=== PATIENT | female | born 1930 | race Caucasian/White ===

== ENCOUNTER 2017-04-09 23:50 | Inpatient (IN) | payer MEDICARE ==
[~2017-04-09] VITALS: Ht 152.4 cm; Wt 39.6 kg
[2017-04-10] VITALS (9 sets, daily range): BP systolic 123–157; BP diastolic 57–81; PULSE 80–112; RESP 14–24; TEMP 97.7–99.9; O2SAT 92–99
[2017-04-10] MEDS ORDERED: ATIV2INJ2 SQ (01:10)
[2017-04-10] MEDS ORDERED: FURO1TAB62 PO (01:10)
[2017-04-10] MEDS ORDERED: NORC5TAB PO (01:10)
[2017-04-10] MEDS ORDERED: ATIV2INJ2 IM (01:10)
[2017-04-10] MEDS ORDERED: POTA10TA15 PO (01:10)
[2017-04-10] MEDS ORDERED: ALPR0.5T3 PO ×2 (01:10)
[2017-04-10] MEDS ORDERED: SENN8.6T81 PO (01:10)
[2017-04-10] MEDS ORDERED: IPRASOL INH (01:10)
[2017-04-10] MEDS ORDERED: MORPHINE 20MG/ML PO (01:10)
[2017-04-10] MEDS ORDERED: MORP1INJ SQ (01:10)
[2017-04-10] MEDS ORDERED: PRED10 PO (01:12)
[2017-04-10] MEDS ORDERED: LEVO50TA4 PO (01:12)
[2017-04-10] MEDS ORDERED: PARO40TA2 PO (01:12)
[2017-04-10] MEDS ORDERED: GABA100C4 PO (01:12)
[2017-04-10] MEDS ORDERED: ASPI325T PO (01:12)
[2017-04-10 03:06] LABS: AUTOMATED NEUTROPHIL # 13.2 TH/MM3 (1.8-7.7); BASOPHIL # 0.1 TH/MM3 (0-0.2); BASOPHIL % 0.8 % (0.0-2.0); EOSINOPHIL % 0.2 % (0.0-4.0); HEMATOCRIT 34.1 % (35.0-46.0); HEMO FLAGS DIFF FINAL; LYMPH % 4.7 % (9.0-44.0); LYMPHOCYTE # 0.7 TH/MM3 (1.0-4.8); MEAN CELL VOLUME 88.5 FL (80.0-100.0); MEAN CORPUSCULAR HEMOGLOBIN 27.4 PG (27.0-34.0); NEUT % 88.3 % (16.0-70.0); PLATELET COUNT 294 TH/MM3 (150-450); RED BLOOD COUNT 3.85 MIL/MM3 (4.00-5.30); RED CELL DISTRIBUTION WIDTH 23.5 % (11.6-17.2); WHITE BLOOD COUNT 14.9 TH/MM3 (4.0-11.0)
[2017-04-10 03:10] LABS: BLOOD, URINE NEG (NEG); GLUCOSE,URINE NEG (NEG); HYALINE CAST, URINE 3 /lpf (RARE); KETONE, URINE 40 mg/dL (NEG); MUCUS URINE FEW /lpf (OCC); NITRITE,URINE NEG (NEG); URINE COLOR YELLOW (YELLW/STRAW)
[2017-04-10 03:14] LABS: COMMENT (UR) CATH-CULT NOT IND; CULTURE IF INDICATED CATH CULTURE NOT IND
[2017-04-10 03:16] LABS: BICARBONATE 35.8 MEQ/L (21.0-32.0); POTASSIUM 4.4 MEQ/L (3.5-5.1)
--- NOTE | 2017-04-10 03:59 | PD ---
HPI Chief Complaint: Medical Clearance Time Seen by Provider: 02:37 Travel History International Travel<30 days: No Contact w/Intl Traveler<30days: No Traveled to known affect area: No History of Present Illness HPI 86-year-old female presents to the emergency department in the care of her daughter for evaluation of generalized weakness and increased somnolence while receiving morphine and Ativan. Patient reportedly was evaluated to her hospice provider for hip pain. Patient is on hospice for end-stage COPD and CHF. Patient also has chronic anemia. Patient had a fall and the hospice provider stated they could do an x-ray and take her to inpatient hospice care and provide her with pain management. The daughter was agreeable to x-ray and medications for pain. Daughter states since Monday while she's been checking on her mother she become more and more drowsy and somnolent. Daughter states she never sleeps as much and she is afraid that she is being overmedicated. Daughter states that when she discussed this with the hospice provider she stated she was on a pain control regimen for her chronic end-stage condition. The daughter states that she does not feel that she is completely and states that she is typically ambulatory and has been very talkative and has not been ill. No report of recent fever or cough or congestion. No report of vomiting. No reported aspiration chest pain shortness of breath abdominal pain. No report of diarrhea. Since being placed in the hospice inpatient facility they have placed a urinary catheter which also has upset the daughter. The daughter is upset because the mother is not eating and they are not providing her with any IV fluids. Patient continues to smoke cigarettes at home on home hospice. [facility] Past Medical History Narrative Medical COPD CHF anemia tobaccoism nursing notes reviewed Medical History: Unable to Obtain COPD: Yes (END-STAGE COPD) ?: Not Past Surgical History Surgical History: Unable to Obtain Social History Alcohol Use: No Tobacco Use: Yes Allergies-Medications (Allergen,Severity, Reaction): Coded Allergies: Penicillins (Verified Allergy, Unknown, 04/10/17) Reported Meds & Prescriptions Reported Meds & Active Scripts Active Reported Prednisone 10 Mg Tab 10 Mg PO DAILY Paroxetine (Paroxetine HCl) 40 Mg Tab 40 Mg PO DAILY Levothyroxine (Levothyroxine Sodium) 50 Mcg Tab 50 Mcg PO DAILY Gabapentin 100 Mg Cap 200 Mg PO BID Aspirin 325 Mg Tab 325 Mg PO DAILY Morphine Inj (Morphine Sulfate) 10 Mg/Ml Inj 5 Mg SQ PRN Morphine Inj (Morphine Sulfate) 10 Mg/Ml Inj 2.5 Mg SQ PRN Ativan Inj (Lorazepam) 2 Mg/Ml Inj 1 Mg SQ TID PRN Ativan Inj (Lorazepam) 2 Mg/Ml Inj 0.5 Mg IM TID PRN Potassium Chloride Microencaps 10 Meq Tab 10 Meq PO DAILY Sennosides 8.6 Mg Tab 17.2 Mg PO HS [Morphine 20MG/Ml] 5 Mg PO [Morphine 20MG/Ml] 10 Mg PO Duoneb (Ipratropium-Albuterol Neb) 0.5-2.5 Mg/3 Ml Neb 1 Nebule INH Q4HR NEB [place] (Hydrocodone-Acetaminophen) 5-325 mg Tab 1 Tab PO Q4H PRN Lasix (Furosemide) 20 Mg Tab 20 Mg PO DAILY Alprazolam 0.5 Mg Tab 0.5 Mg PO Q4H PRN Alprazolam 0.5 Mg Tab 1 Mg PO Q4H PRN Review of Systems Except as stated in HPI: all other systems reviewed are Neg General / Constitutional: No: Fever HENT: No: Congestion Cardiovascular: No: Chest Pain or Discomfort Respiratory: No: Shortness of Breath Gastrointestinal: No: Abdominal Pain Genitourinary: No: Flank Pain Musculoskeletal: Positive: Pain (hip pain secondary to fall with bruising) Skin: No Rash Neurologic: Positive: Weakness Psychiatric: No: Anxiety Hematologic/Lymphatic: Positive: Easy Bruising Physical Exam Narrative GENERAL: Thin elderly female drowsy but awakens to name otherwise sleeps: No acute distress no respiratory distress SKIN: Warm and dry. HEAD: Normocephalic. EYES: No scleral icterus. Pupils equal round reactive to light. No injection or drainage. NECK: Supple, trachea midline. No JVD or lymphadenopathy. CARDIOVASCULAR: Regular rate and rhythm without murmurs, gallops, or rubs. RESPIRATORY: Breath sounds equal bilaterally. No accessory muscle use. GASTROINTESTINAL: Abdomen soft, non-tender, nondistended. MUSCULOSKELETAL: No cyanosis, or edema. Left hip with subacute bruising from the hip to the lateral distal upper leg intact flexion and extension pelvis is stable. Radial and dorsalis pedis pulses 2+ to palpation. BACK: Nontender without obvious deformity. No CVA tenderness. Data Data Last Documented VS Vital Signs Date Time Temp Pulse Resp B/P (MAP) Pulse Ox O2 Delivery O2 Flow Rate FiO2 04/10/17 05:16 95 17 151/57 (88) 96 Room Air 04/10/17 04:42 99.9 Orders Orders Complete Blood Count With Diff (04/10/17 02:37) Basic Metabolic Panel (Bmp) (04/10/17 02:37) Urinalysis - C+S If Indicated (04/10/17 02:37) Cath For Specimen (04/10/17 02:37) Chest, Single Ap (04/10/17 ) Sodium Chlor 0.9% 250 Ml Inj (Ns 250 Ml (04/10/17 04:15) Blood Culture (04/10/17 05:22) Cefepime Inj (Maxipime Inj) (04/10/17 05:30) Azithromycin Inj (Zithromax Inj) (04/10/17 05:30) Labs Laboratory Tests Test 04/10/17 02:20 White Blood Count 14.9 TH/MM3 Red Blood Count 3.85 MIL/MM3 Hemoglobin 10.6 GM/DL Hematocrit 34.1 % Mean Corpuscular Volume 88.5 FL Mean Corpuscular Hemoglobin 27.4 PG Mean Corpuscular Hemoglobin Concent 31.0 % Red Cell Distribution Width 23.5 % Platelet Count 294 TH/MM3 Mean Platelet Volume 7.3 FL Neutrophils (%) (Auto) 88.3 % Lymphocytes (%) (Auto) 4.7 % Monocytes (%) (Auto) 6.0 % Eosinophils (%) (Auto) 0.2 % Basophils (%) (Auto) 0.8 % Neutrophils # (Auto) 13.2 TH/MM3 Lymphocytes # (Auto) 0.7 TH/MM3 Monocytes # (Auto) 0.9 TH/MM3 Eosinophils # (Auto) 0.0 TH/MM3 Basophils # (Auto) 0.1 TH/MM3 CBC Comment DIFF FINAL Differential Comment Urine Color YELLOW Urine Turbidity CLEAR Urine pH 5.0 Urine Specific [place] 1.014 Urine Protein NEG mg/dL Urine Glucose (UA) NEG mg/dL Urine Ketones 40 mg/dL Urine Occult Blood NEG Urine Nitrite NEG Urine Bilirubin NEG Urine Urobilinogen LESS THAN 2.0 MG/DL Urine Leukocyte Esterase TRACE Urine RBC 5 /hpf Urine WBC 4 /hpf Urine Hyaline Casts 3 /lpf Urine Mucus FEW /lpf Microscopic Urinalysis Comment CATH-CULT NOT IND Blood Urea Nitrogen 36 MG/DL Creatinine 0.34 MG/DL Random Glucose 56 MG/DL Calcium Level 8.8 MG/DL Sodium Level 143 MEQ/L Potassium Level 4.4 MEQ/L Chloride Level 101 MEQ/L Carbon Dioxide Level 35.8 MEQ/L Anion Gap 6 MEQ/L Estimat Glomerular Filtration Rate 177 ML/MIN MDM Medical Decision Making Medical Screen Exam Complete: Yes Emergency Medical Condition: Yes Medical Record Reviewed: Yes Interpretation(s) CBC & BMP Diagram 04/10/17 02:20 Calcium Level 8.8 Vital Signs Date Time Temp Pulse Resp B/P (MAP) Pulse Ox O2 Delivery O2 Flow Rate FiO2 04/10/17 05:16 95 17 151/57 (88) 96 Room Air 04/10/17 04:42 99.9 88 17 157/68 (97) 97 Room Air 04/10/17 01:14 83 17 04/10/17 00:46 83 17 135/69 (91) 98 Room Air 04/10/17 00:19 86 24 135/61 (85) 96 cxr: RLL infiltrate Differential Diagnosis Polypharmacy, dehydration, renal failure, UTI, end-stage COPD Narrative Course CBC is automated differential total white cell count mildly elevated 14,900; BUN is elevated 36 with creatinine of 0.34; urinalysis normal Patient awakens to her name; last administration of Ativan and morphine approximately 12 hours ago who presents It's 4 AM hospice nurse at bedside last administration of Ativan or morphine 4: 45 PM on 04/09/70 Lab values resulted nurse asked to obtain a temperature on the patient which was 99.9F patient identified a white count 14,900 urinalysis is normal no rash or other obvious source of infection abdomen soft nontender chest x-ray obtained and shows a right lower lobe infiltrate concerning for pneumonia per reading radiologist; as such blood cultures obtained and patient administered azithromycin and cefepime. Daughter has been notified that hospice has been here in hospice has spoke with the daughter with a discharge plan. Room air O2 saturations 96-98% on room air. Patient in no respiratory distress. It's 6:19 AM patient's daughter has returned and is desirous of having the patient return to inpatient hospice care and while in inpatient hospice care to continue her on antibiotic and as needed IV fluids; I have called the [facility] on-call nurse Aretha who states that they will arrange for patient to be placed in the [facility] or [facility] so that she continue to receive antibiotic for possible right lower lobe pneumonia occasional fluids as needed and as needed pain medication aware that daughter does not want her to receive ongoing as needed morphine subcutaneous or Ativan subcutaneous. Diagnosis Primary Impression: Pneumonia Qualified Codes: J18.1 - Lobar pneumonia, unspecified organism Additional Impression: Dehydration, mild Referrals: Primary Care Physician 1 day Patient Instructions: General Instructions Med/Other Pt SpecificInfo: Prescription(s) given Scripts Azithromycin (Zithromax Z-Miguel Ángel) 250 Mg Dspk 250 MG PO DIRECTED for Infection, #1 DSPK 0 Refills 500 MG (2 tabs) day 1, then 1 tab days 2-5. Prov: Micaela Floyd MD 04/10/17 Micaela Floyd MD Apr 10, 2017 03:59
[2017-04-10] MEDS ORDERED: SODIUM CHLOR 0.9% 250 ML INJ 250 ML IV ONE (04:15)
--- NOTE | 2017-04-10 04:45 | RADRPT ---
EXAM DATE/TIME: 04/10/2017 04:02 [place] COMPARISON: No previous studies available for comparison. INDICATIONS : Cough. MEDICAL HISTORY : None. SURGICAL HISTORY : None. ENCOUNTER: Initial ACUITY: 1 day PAIN SCORE: 0/10 LOCATION: Bilateral chest FINDINGS: Right greater left interstitial opacities are seen in the lungs. There is volume loss in the right goff ggesting chronicity. A superimposed acute pneumonia of the right lung base not excludable. No large e ffusion seen. No pneumothorax. Heart size within normal limits. CONCLUSION: Acute pneumonia possible of the right lung base in the proper clinical setting. Otherwise mainly card table attendant adis appearing bilateral interstitial disease with right-sided volume loss. Corby Villarreal MD on April 10, 2017 at 4:42 Board Certified Radiologist. This report was verified electronically.
[2017-04-10] MEDS ORDERED: AZITHROMYCIN INJ 500 MG in SODIUM CHLOR 0.9% 250 ML INJ 250 ML IV ONE (05:30)
[2017-04-10] MEDS ORDERED: CEFEPIME INJ 2,000 MG in SODIUM CHLORIDE 0.9% INJ 100 ML IV ONE (05:30)
[2017-04-10] MEDS ORDERED: ZITHTAB PO (06:27)
--- NOTE | 2017-04-10 13:30 | PD ---
Physical Exam Narrative I was informed by previous provider that pt was waiting for transport to inpatient hospice. However, pt's family changed their mind and wants pt admitted for IV antibiotics for pneumonia. They are revoking the hospice care. Case management Chani has explained to the family extensive and states that pt does meet inpatient admission for sepsis secondary to pneumonia. This is a 86yo F with end stage COPD, CHF was on hospice care. Labs reviewed, leukocytosis at 14.9. H/H low at 10.6/34.1, pt has chronic anemia. BMP unremarkable except for elevated BUN at 36. Pt does appear dehydrated. UA negative. Ketone 40. Pt was given cefepime and azithromycin by previous team. Will give maintenance fluid as pt appears dry and is not really eating. Glucose was also low at 56. Rechecked blood glucose and it was 100. Pt placed on maintenance fluid. Discussed with Dr. Anderson and accepted to his service. Data Data Last Documented VS Vital Signs Date Time Temp Pulse Resp B/P (MAP) Pulse Ox O2 Delivery O2 Flow Rate FiO2 04/10/17 13:45 80 14 124/57 (79) 99 Room Air 04/10/17 04:42 99.9 Orders Orders Complete Blood Count With Diff (04/10/17 02:37) Basic Metabolic Panel (Bmp) (04/10/17 02:37) Urinalysis - C+S If Indicated (04/10/17 02:37) Cath For Specimen (04/10/17 02:37) Chest, Single Ap (04/10/17 ) Sodium Chlor 0.9% 250 Ml Inj (Ns 250 Ml (04/10/17 04:15) Blood Culture (04/10/17 05:22) Cefepime Inj (Maxipime Inj) (04/10/17 05:30) Azithromycin Inj (Zithromax Inj) (04/10/17 05:30) D5-1/2 Ns + Kcl 20 Meq Inj (D5-1/2 Ns + (04/10/17 13:45) Blood Glucose (04/10/17 13:36) Admit Order (Ed Use Only) (04/10/17 14:00) Labs Laboratory Tests Test 04/10/17 02:20 White Blood Count 14.9 TH/MM3 Red Blood Count 3.85 MIL/MM3 Hemoglobin 10.6 GM/DL Hematocrit 34.1 % Mean Corpuscular Volume 88.5 FL Mean Corpuscular Hemoglobin 27.4 PG Mean Corpuscular Hemoglobin Concent 31.0 % Red Cell Distribution Width 23.5 % Platelet Count 294 TH/MM3 Mean Platelet Volume 7.3 FL Neutrophils (%) (Auto) 88.3 % Lymphocytes (%) (Auto) 4.7 % Monocytes (%) (Auto) 6.0 % Eosinophils (%) (Auto) 0.2 % Basophils (%) (Auto) 0.8 % Neutrophils # (Auto) 13.2 TH/MM3 Lymphocytes # (Auto) 0.7 TH/MM3 Monocytes # (Auto) 0.9 TH/MM3 Eosinophils # (Auto) 0.0 TH/MM3 Basophils # (Auto) 0.1 TH/MM3 CBC Comment DIFF FINAL Differential Comment Urine Color YELLOW Urine Turbidity CLEAR Urine pH 5.0 Urine Specific [place] 1.014 Urine Protein NEG mg/dL Urine Glucose (UA) NEG mg/dL Urine Ketones 40 mg/dL Urine Occult Blood NEG Urine Nitrite NEG Urine Bilirubin NEG Urine Urobilinogen LESS THAN 2.0 MG/DL Urine Leukocyte Esterase TRACE Urine RBC 5 /hpf Urine WBC 4 /hpf Urine Hyaline Casts 3 /lpf Urine Mucus FEW /lpf Microscopic Urinalysis Comment CATH-CULT NOT IND Blood Urea Nitrogen 36 MG/DL Creatinine 0.34 MG/DL Random Glucose 56 MG/DL Calcium Level 8.8 MG/DL Sodium Level 143 MEQ/L Potassium Level 4.4 MEQ/L Chloride Level 101 MEQ/L Carbon Dioxide Level 35.8 MEQ/L Anion Gap 6 MEQ/L Estimat Glomerular Filtration Rate 177 ML/MIN [facility] Supervised Visit with CARLOS: No Diagnosis Primary Impression: Pneumonia Qualified Codes: J18.1 - Lobar pneumonia, unspecified organism Additional Impression: Dehydration, mild Admitting Information Admitting Physician Requests: Admit Referrals: Primary Care Physician 1 day Scripts Azithromycin (Zithromax Z-Miguel Ángel) 250 Mg Dspk 250 MG PO DIRECTED for Infection, #1 DSPK 0 Refills 500 MG (2 tabs) day 1, then 1 tab days 2-5. Prov: Micaela Floyd MD 04/10/17 Dariana Duncan DO Apr 10, 2017 13:30
[2017-04-10] MEDS ORDERED: LACTULOSE SYRUP 20 GM/30 ML CUP PO PRN (14:15)
[2017-04-10] MEDS ORDERED: NALOXONE HCL 0.4 MG/ML AMP IV PUSH PRN (14:15)
[2017-04-10] MEDS ORDERED: ONDANSETRON HCL 4 MG/2 ML VIAL IVP PRN (14:15)
[2017-04-10] MEDS ORDERED: BISACODYL 10 MG SUPP RECTAL PRN (14:15)
[2017-04-10] MEDS ORDERED: MAGNESIUM HYDROXIDE SUSP 30 ML CUP PO PRN (14:15)
[2017-04-10] MEDS ORDERED: SENNOSIDES 8.6 MG TAB PO PRN (14:15)
[2017-04-10] MEDS ORDERED: ACETAMINOPHEN 325 MG TAB PO PRN (14:15)
[2017-04-10] MEDS: D5-1/2 NS + KCL 20 MEQ INJ 1,000 ML IV SCH (14:39)
[2017-04-10] MEDS ORDERED: AZTREONAM INJ 2,000 MG in SODIUM CHLORIDE 0.9% INJ 100 ML IV SCH (15:00)
--- NOTE | 2017-04-10 15:34 | HHI.HP ---
[facility] Service [facility] Primary Care Physician Non-Staff Admission Diagnosis Sepsis secondary to pneumonia Diagnoses: Chief Complaint: AMS Left hip pain s/p fall Travel History International Travel<30 Days: No Contact w/Intl Traveler <30 Da: No Traveled to Known Affected Are: No Sepsis Criteria SIRS Criteria (2 or more): Heart rate over 90, WBC > 85733, < 4000 or > 10% bands Sepsis Criteria (SIRS+source): Infect source susp/known Criteria Outcome: Meets sepsis criteria History of Present Illness Written by Vidhya Otto PA-C acting as scribe for Dr. Godinez on 04/10/17 at 15:21. This is an 86-year-old female with a past medical history significant for end- stage COPD and CHF who has been under the care of hospice while at home until she sustained a fall this past injuring the left hip and was brought into the care center for further evaluation and treatment. Due to patient's altered mental status per history is obtained from review of the medical record as well as discussion with the son who is at the bedside but admits he is not the primary caregiver for the patient is limited in his knowledge of her history. Per his report, patient does not have a history of dementia and has been alert and oriented up until yesterday when she developed increasing somnolence. He states for the past 2 days she has been sleeping constantly, will only briefly open her eyes but will not speak. She moans occasionally. This sister who is the primary caregiver and is not present has concerns that she has been receiving too much pain medication while at the care center and they no longer want her under hospice care. Per review of the records from the [facility], x-ray was done of the left hip which did not show a fracture. There is no report of recent fever, cough or congestion. No reported chest pain , shortness of breath, abdominal pain or diarrhea. Reportedly she does require the use of oxygen but continues to smoke heavily. In the ED, chest x-ray was obtained which revealed interstitial opacities right greater than left and superimposed acute pneumonia of the right lung base. White count is elevated at 14.9. Temperature is 99.9. She was also noted to be slightly tachycardic with a heart rate of 95. Review of Systems Attempt a 10 point review of systems but unobtainable due to patient's altered mental status Past Family Social History Past Medical History End-stage COPD CHF Hypothyroidism Chronic anemia Ongoing tobacco Recurrent falls OCD Postherpetic neuralgia History of epiglottis cancer History of fracture left hip Past Surgical History Surgery for left hip fracture 1996 Resection of epiglottis for cancer treatment Reported Medications Prednisone 10 Mg Tab 10 Mg PO DAILY Paroxetine (Paroxetine HCl) 40 Mg Tab 40 Mg PO DAILY Levothyroxine (Levothyroxine Sodium) 50 Mcg Tab 50 Mcg PO DAILY Gabapentin 100 Mg Cap 200 Mg PO BID Aspirin 325 Mg Tab 325 Mg PO DAILY Morphine Inj (Morphine Sulfate) 10 Mg/Ml Inj 5 Mg SQ PRN Morphine Inj (Morphine Sulfate) 10 Mg/Ml Inj 2.5 Mg SQ PRN Ativan Inj (Lorazepam) 2 Mg/Ml Inj 1 Mg SQ TID PRN Ativan Inj (Lorazepam) 2 Mg/Ml Inj 0.5 Mg IM TID PRN Potassium Chloride Microencaps 10 Meq Tab 10 Meq PO DAILY Sennosides 8.6 Mg Tab 17.2 Mg PO HS [Morphine 20MG/Ml] 5 Mg PO [Morphine 20MG/Ml] 10 Mg PO Duoneb (Ipratropium-Albuterol Neb) 0.5-2.5 Mg/3 Ml Neb 1 Nebule INH Q4HR NEB [place] (Hydrocodone-Acetaminophen) 5-325 mg Tab 1 Tab PO Q4H PRN Lasix (Furosemide) 20 Mg Tab 20 Mg PO DAILY Alprazolam 0.5 Mg Tab 0.5 Mg PO Q4H PRN Alprazolam 0.5 Mg Tab 1 Mg PO Q4H PRN Allergies: Coded Allergies: Penicillins (Verified Allergy, Unknown, 04/10/17) Active Ordered Medications Current Medications Medications (Trade) Dose Ordered Sig/Martha Route Start Time Stop Time Status Last Admin Potassium Chloride/Dextrose/ Sod Cl 1,000 ml @ 42 mls/hr [id number] IV 04/10/17 13:45 04/10/17 14:39 Aztreonam 2000 mg/ Sodium Chloride 100 ml @ 200 mls/hr Q8H IV 04/10/17 15:00 Levofloxacin/ Dextrose 150 ml @ 100 mls/hr Q24H IV 04/10/17 16:00 (Tylenol) 650 mg Q4H PRN PO 04/10/17 14:15 (Zofran Inj) 4 mg Q6H PRN IVP 04/10/17 14:15 (Lovenox Inj) 30 mg Q24H SQ 04/10/17 15:00 (Narcan Inj) 0.4 mg UNSCH PRN IV PUSH 04/10/17 14:15 (Milk Of Magnesia Liq) 30 ml Q12H PRN PO 04/10/17 14:15 (Senokot) 17.2 mg Q12H PRN PO 04/10/17 14:15 (Dulcolax Supp) 10 mg DAILY PRN RECTAL 04/10/17 14:15 (Lactulose Liq) 30 ml DAILY PRN PO 04/10/17 14:15 (Xanax) 0.5 mg Q4H PRN PO 04/10/17 14:15 (Aspirin) 325 mg DAILY PO 04/11/17 09:00 (Neurontin) 200 mg BID PO 04/10/17 21:00 ([place] 5-325 Mg) 1 tab Q4H PRN PO 04/10/17 14:15 (Duoneb Neb) 1 ampule Q4HR NEB INH 04/10/17 16:00 (Synthroid) 50 mcg DAILY@0600 PO 04/11/17 06:00 (Paxil) 40 mg DAILY PO 04/11/17 09:00 (Deltasone) 10 mg DAILY PO 04/11/17 09:00 (Senokot) 17.2 mg HS PO 04/10/17 21:00 Family History COPD Social History Patient smokes one half packs per day. No alcohol use. Physical Exam Vital Signs Vital Signs Date Time Temp Pulse Resp B/P (MAP) Pulse Ox O2 Delivery O2 Flow Rate FiO2 04/10/17 13:45 80 14 124/57 (79) 99 Room Air 04/10/17 10:45 80 14 123/58 (79) 98 04/10/17 06:23 95 16 126/60 (82) 96 Room Air 04/10/17 05:16 95 17 151/57 (88) 96 Room Air 04/10/17 04:42 99.9 88 17 157/68 (97) 97 Room Air 04/10/17 01:14 83 17 04/10/17 00:46 83 17 135/69 (91) 98 Room Air 04/10/17 00:19 86 24 135/61 (85) 96 Physical Exam GENERAL: This is a thin frail elderly female, in no apparent distress. Limited examination due to altered mental status. Patient is hypersomnolent. She moans occasionally but otherwise gives no response. Patient's son is at the bedside. SKIN: Skin tears noted on the left upper extremity.. Cool and dry. HEAD: Atraumatic. Normocephalic. EYES: Pupils equal round and reactive. No scleral icterus. No injection or drainage. ENT: Nose without bleeding, purulent drainage. Airway patent. NECK: Trachea midline. No lymphadenopathy. CARDIOVASCULAR: Regular rate and rhythm without murmurs, gallops, or rubs. RESPIRATORY: Poor effort. Diminished breath sounds bilaterally. No wheezes, rales, or rhonchi. GASTROINTESTINAL: Abdomen soft, non-tender, nondistended. No hepato-splenomegaly , or palpable masses. No guarding. GENITOURINARY: Freeman in place. MUSCULOSKELETAL: Extremities without clubbing, cyanosis, or edema. Evidence of the old well-healed surgical scar left hip. Patient has extensive ecchymosis laterally on the left hip extending from the greater trochanter down past the knee. NEUROLOGICAL: Patient is hypersomnolent. Does appear to be able to move all extremities spontaneously. Laboratory Laboratory Tests Test 04/10/17 02:20 White Blood Count 14.9 Red Blood Count 3.85 Hemoglobin 10.6 Hematocrit 34.1 Mean Corpuscular Volume 88.5 Mean Corpuscular Hemoglobin 27.4 Mean Corpuscular Hemoglobin Concent 31.0 Red Cell Distribution Width 23.5 Platelet Count 294 Mean Platelet Volume 7.3 Neutrophils (%) (Auto) 88.3 Lymphocytes (%) (Auto) 4.7 Monocytes (%) (Auto) 6.0 Eosinophils (%) (Auto) 0.2 Basophils (%) (Auto) 0.8 Neutrophils # (Auto) 13.2 Lymphocytes # (Auto) 0.7 Monocytes # (Auto) 0.9 Eosinophils # (Auto) 0.0 Basophils # (Auto) 0.1 CBC Comment DIFF FINAL Differential Comment Urine Color YELLOW Urine Turbidity CLEAR Urine pH 5.0 Urine Specific [place] 1.014 Urine Protein NEG Urine Glucose (UA) NEG Urine Ketones 40 Urine Occult Blood NEG Urine Nitrite NEG Urine Bilirubin NEG Urine Urobilinogen LESS THAN 2.0 Urine Leukocyte Esterase TRACE Urine RBC 5 Urine WBC 4 Urine Hyaline Casts 3 Urine Mucus FEW Microscopic Urinalysis Comment CATH-CULT NOT IND Blood Urea Nitrogen 36 Creatinine 0.34 Random Glucose 56 Calcium Level 8.8 Sodium Level 143 Potassium Level 4.4 Chloride Level 101 Carbon Dioxide Level 35.8 Anion Gap 6 Estimat Glomerular Filtration Rate 177 Date/Time Source Procedure Growth Status 04/10/17 05:40 Blood Peripheral Aerobic Blood Culture Pending Received 04/10/17 05:40 Blood Peripheral Anaerobic Blood Culture Pending Received Result Diagram: 04/10/1721904/10/17 022 Imaging Last Impressions Chest X-Ray 04/10/17 0000 Signed Impressions: Service Date/Time: Monday, April 10, 2017 04:02 - CONCLUSION: Acute pneumonia possible of the right lung base in the proper clinical setting. Otherwise mainly chronic appearing bilateral interstitial disease with right-sided volume loss. Corby Villarreal MD Capniii VTE Risk Assessment Caprini VTE Risk Assessment: Mod/High Risk (score >= 2) Caprini Risk Assessment Model Point Value = 1 Point Value = 2 Point Value = 3 Point Value = 5 Age 41-60 Minor surgery BMI > 25 kg/m2 Swollen legs Varicose veins or History of unexplained or recurrent spontaneous Oral contraceptives or hormone replacement Sepsis (< 1 month) Serious lung disease, including pneumonia (< 1 month) Abnormal pulmonary function Acute myocardial infarction Congestive heart failure (< 1 month) History of inflammatory bowel disease Medical patient at bed rest Age 61-74 Arthroscopic surgery Major open surgery (> 45 min) Laparoscopic surgery (> 45 min) Malignancy Confined to bed (> 72 hours) Immobilizing plaster cast Central venous access Age >= 75 History of VTE Family history of VTE Factor V Leiden Prothrombin [id number] Lupus anticoagulant Anticardiolipin antibodies Elevated serum homocysteine Heparin-induced thrombocytopenia Other congenital or acquired thrombophilia Stroke (< 1 month) Elective arthroplasty Hip, pelvis, or leg fracture Acute spinal cord injury (< 1 month) Prophylaxis Regimen Total Risk Factor Score Risk Level Prophylaxis Regimen 0-1 Low Early ambulation 2 Moderate Order ONE of the following: *Sequential Compression Device (SCD) *Heparin 5000 units SQ BID 3-4 Higher Order ONE of the following medications: *Heparin 5000 units SQ TID *Enoxaparin/Lovenox 40 mg SQ daily (WT < 150 kg, CrCl > 30 mL/min) *Enoxaparin/Lovenox 30 mg SQ daily (WT < 150 kg, CrCl > 10-29 mL/min) *Enoxaparin/Lovenox 30 mg SQ BID (WT < 150 kg, CrCl > 30 mL/min) AND/OR *Sequential Compression Device (SCD) 5 or more Highest Order ONE of the following medications: *Heparin 5000 units SQ TID (Preferred with Epidurals) *Enoxaparin/Lovenox 40 mg SQ daily (WT < 150 kg, CrCl > 30 mL/min) *Enoxaparin/Lovenox 30 mg SQ daily (WT < 150 kg, CrCl > 10-29 mL/min) *Enoxaparin/Lovenox 30 mg SQ BID (WT < 150 kg, CrCl > 30 mL/min) AND *Sequential Compression Device (SCD) Assessment and Plan Assessment and Plan 86-year-old female with a past medical history significant for end-stage COPD and CHF who has been under the care of hospice while at home until she sustained a fall this past injuring the left hip and was brought into the care center for further evaluation and treatment. Patient's daughter brought the patient into the [place] ED today due to concerns of generalized weakness and increasing somnolence. Sepsis - patient meets sepsis criteria with elevated white count of 14.9, tachycardia with HR 95 and source of pneumonia - Chest x-ray personally reviewed showing acute pneumonia right lung base superimposed on chronic bilateral interstitial disease and right-sided volume loss - Patient started on IV cefepime and azithromycin in the ED - Continue on IV Levaquin and Aztreonam - Follow up on blood culture results - Supplemental oxygen - Monitor respiratory status - DuoNeb's scheduled - Continuous cardiac monitoring - Monitor white count AMS/encephalopathy - Secondary to infection, dehydration and possible medication effect - Limit narcotic use and sedating medications - Fall precautions - Gentle IV fluids - Monitor End-stage COPD with ongoing tobaccoism previously under the care of hospice while at home - DuoNebs - Supplemental oxygen - Resume patient's home prednisone 10 mg daily - Consult palliative care CHF - No evidence of fluid overload at this time - Hold home Lasix and potassium at this time - Cautious use of fluid - Monitor Hypothyroidism - Resume patient's home dose of levothyroxine 50 g daily Chronic anemia - Unsure patient's baseline - Monitor CBC as indicated Postherpetic neuralgia - Resume patient's home dose of gabapentin Recurrent falls, reported Left hip pain status post recent fall - Per review of [facility] medical record, no fracture noted on x-ray - PT eval/treatment History of epiglottis cancer - Stable DVT prophylaxis - Heparin subcutaneous This note was transcribed by selene Otto. I, Dr. Ephraim Godinez personally performed the history, physical exam, and medical decision making; and confirmed the accuracy of the information in the transcribed note. Authenticated by Dr. Ephraim Godinez on 04/10/17 at 15:59. Discussed Condition With Son, ED physician, nursing staff Physician Certification 2 Midnight Certification Type: Admission for Inpatient Services Order for Inpatient Services The services are ordered in accordance with Medicare regulations or non- Medicare payer requirements, as applicable. In the case of services not specified as inpatient-only, they are appropriately provided as inpatient services in accordance with the 2-midnight benchmark. Estimated LOS (days): 3 3 days is the estimated time the patient will need to remain in the hospital, assuming treatment plan goals are met and no additional complications. Post-Hospital Plan: Not yet determined Vidhya Otto Apr 10, 2017 15:34 Ephraim Godinez MD Apr 10, 2017 15:59
[2017-04-10] MEDS: RESP: ALBUTEROL 2.5 MG/IPRATROPIUM 0.5 MG NEB (SCH) INH (15:46)
[2017-04-10] MEDS: LEVOFLOXACIN 750 MG PREMIX INJ 150 ML IV SCH (17:42)
[2017-04-10] MEDS: ENOXAPARIN SODIUM 30 MG/0.3 ML SYRINGE SQ SCH (17:42)
--- NOTE | 2017-04-10 17:56 | HHI.HCPN ---
Met with son, Nael, at bedside to establish contact. Arrangements made to hold family meeting at 10:00 a.m. 04/11 to discuss GOC after patient has been off narcotic medications for another night. Plan to meet with Josey Lee and Luke Silverio (son from first marriage) in a.m. (Cassie Fatima) Chart reviewed. Case discussed with palliative care CAREER ORIENTATION TEACHER. Above note reviewed and I concur. . (Royer Barnett MD) Cassie Fatima Apr 10, 2017 17:56 Royer Barnett MD Apr 16, 2017 12:12
[2017-04-10] MEDS ORDERED: KETOROLAC TROMETHAMINE 30 MG/ML (IVP) VIAL IV PUSH ONE (18:15)
[2017-04-10] MEDS: AZTREONAM INJ 2,000 MG in SODIUM CHLORIDE 0.9% INJ 100 ML IV SCH (19:00)
[2017-04-10] MEDS: SENNOSIDES 8.6 MG TAB PO SCH (21:14)
[2017-04-10] MEDS: GABAPENTIN 250 MG/5 ML UDC PO SCH (21:14)
[2017-04-10] MEDS: ALPRAZolam 0.5 MG TAB PO PRN (21:14)
[2017-04-11] VITALS (10 sets, daily range): BP systolic 104–157; BP diastolic 51–66; PULSE 60–102; RESP 16–20; TEMP 97.6–98; O2SAT 91–96
[2017-04-11] MEDS: RESP: ALBUTEROL 2.5 MG/IPRATROPIUM 0.5 MG NEB (SCH) INH ×6 (00:31→20:07)
[2017-04-11] MEDS: AZTREONAM INJ 2,000 MG in SODIUM CHLORIDE 0.9% INJ 100 ML IV SCH ×3 (00:45→17:15)
[2017-04-11] MEDS: LEVOTHYROXINE SODIUM 50 MCG TAB PO SCH (05:39)
[2017-04-11] MEDS: predniSONE 10 MG TAB PO SCH (09:00)
[2017-04-11] MEDS: ASPIRIN 325 MG TAB PO SCH (09:00)
[2017-04-11] MEDS: PARoxetine HCL 20 MG TAB PO SCH (09:00)
[2017-04-11] MEDS: GABAPENTIN 250 MG/5 ML UDC PO SCH ×2 (09:05→20:39)
[2017-04-11] MEDS: ALPRAZolam 0.5 MG TAB PO PRN ×3 (09:21→20:38)
[2017-04-11 10:15] LABS: AUTOMATED NEUTROPHIL # 11.4 TH/MM3 (1.8-7.7); BASOPHIL % 0.3 % (0.0-2.0); EOSINOPHIL # 0.2 TH/MM3 (0-0.4); EOSINOPHIL % 1.3 % (0.0-4.0); HEMO FLAGS DIFF FINAL; LYMPHOCYTE # 0.7 TH/MM3 (1.0-4.8); MEAN CELL VOLUME 88.3 FL (80.0-100.0); MEAN CORPUSCULAR HGB CONC 31.7 % (32.0-36.0); MONO % 6.5 % (0.0-8.0); NEUT % 86.9 % (16.0-70.0); PLATELET COUNT 276 TH/MM3 (150-450); RED BLOOD COUNT 3.97 MIL/MM3 (4.00-5.30); WHITE BLOOD COUNT 13.2 TH/MM3 (4.0-11.0)
[2017-04-11 10:49] LABS: BICARBONATE 31.8 MEQ/L (21.0-32.0); POTASSIUM 4.6 MEQ/L (3.5-5.1)
--- NOTE | 2017-04-11 14:01 | HHI.PR ---
Subjective Remarks Follow up pneumonia, confusion. Patient is more alert today and does answer questions, but remains confused. No events reported by nursing. Patient denies pain currently. Objective Vitals Vital Signs Date Time Temp Pulse Resp B/P (MAP) Pulse Ox O2 Delivery O2 Flow Rate FiO2 04/11/17 12:00 97.8 96 18 104/51 (68) 96 04/11/17 12:00 97.8 96 18 104/51 (68) 96 04/11/17 09:28 Nasal Cannula 3.00 04/11/17 09:28 102 04/11/17 08:00 98.0 92 18 157/66 (96) 04/11/17 07:42 94 Nasal Cannula 2.00 04/11/17 04:00 97.6 82 18 154/63 (93) 93 04/11/17 04:00 Nasal Cannula 2.00 04/11/17 00:00 Nasal Cannula 2.00 04/11/17 00:00 97.9 60 20 137/58 (84) 94 04/10/17 20:00 98.0 112 20 137/81 (99) 92 04/10/17 20:00 Nasal Cannula 2.00 04/10/17 18:35 97.7 83 16 143/67 (92) 93 I/O 04/10/17 04/10/17 04/10/17 04/11/17 04/11/17 04/11/17 07:00 15:00 23:00 07:00 15:00 23:00 Intake Total 500 ml 0 ml Output Total 1200 ml Balance 500 ml -1200 ml Intake Oral 0 ml IV Total 500 ml Output Urine Total 1200 ml # Bowel Movements 0 Result Diagram: 04/11/17 0805 04/11/17 0805 Imaging Last Impressions Chest X-Ray 04/10/17 0000 Signed Impressions: Service Date/Time: Monday, April 10, 2017 04:02 - CONCLUSION: Acute pneumonia possible of the right lung base in the proper clinical setting. Otherwise mainly chronic appearing bilateral interstitial disease with right-sided volume loss. Corby Villarreal MD Objective Remarks General: No acute distress. Heart: Regular rate and rhythm. No murmur. Lungs: Bilateral rhonchi. Breathing is nonlabored. Abdomen: Soft, nontender, nondistended. Extremities: No lower extremity edema. Ecchymosis extending down the left leg from the hip to the mid calf. Psych: Alert, confused. Procedures None Urinary Catheter: No Vascular Central Line Catheter: No A/P Problem List: (1) Encephalopathy ICD Code: G93.40 - Encephalopathy, unspecified (2) COPD (chronic obstructive pulmonary disease) ICD Code: J44.9 - Chronic obstructive pulmonary disease, unspecified (3) Tobacco abuse ICD Code: Z72.0 - Tobacco use (4) Hypothyroidism ICD Code: E03.9 - Hypothyroidism, unspecified (5) Pneumonia ICD Code: J18.9 - Pneumonia, unspecified organism Status: Acute (6) Dehydration, mild ICD Code: E86.0 - Dehydration Status: Acute Assessment and Plan 1. Sepsis secondary to pneumonia: Continue IV antibiotics. Blood cultures are pending. Continue supplemental oxygen. Scheduled DuoNeb. 2. Encephalopathy: Likely secondary to infection, dehydration. May also be a component of medication effect. Will limit sedating medications. Fall precautions. 3. End-stage COPD with ongoing tobacco abuse: Patient had been under hospice care, but this was revoked prior to admission. Continue duo nebs, supplemental oxygen, prednisone. 4. Hypothyroidism: Continue Synthroid. 5. Chronic anemia: Monitor labs. 6. Postherpetic neuralgia: Continue gabapentin. 7. Recurrent falls: Physical therapy. 8. Left hip pain status post recent fall: X-ray at the half-way facility was reportedly negative. 9. DVT prophylaxis: SCDs, HUMPHREY rios. Problem Qualifiers (1) Pneumonia: Qualified Codes: J18.1 - Lobar pneumonia, unspecified organism Ephraim Godinez MD Apr 11, 2017 14:01
--- NOTE | 2017-04-11 14:13 | PD.CONS ---
Consult Service Palliative Care Consult Requested By Dr. Godinez . Primary Care Physician Non-Staff . Reason for Consultation a. To assist with evaluation and management of symptoms including: Agitation , confusion, dyspnea, pain b. To assist medical decision maker(s) with: better understanding of current medical conditions; weighing benefits/burdens of medical treatment options; making medical treatment decisions. . HPI History of Present Illness This is an 86-year-old female that was brought to the emergency department from [facility] by her daughter as the daughter had decided to rescind hospice and try aggressive treatment for her mother. She was admitted to hospice for end-stage COPD and diastolic heart failure. She has chronic anemia and had a recent fall which showed no fracture by x-ray. Patient was admitted to the hospice care [place] for pain and agitation not able to be controlled in her previous setting. On evaluation in the ED physician reports the patient was drowsy but awakens to name and doses back off to sleep. She was in no acute respiratory distress. At the daughter's request all narcotics were held. Her last administration of Ativan or morphine was at 16:40 5 PM on 04/09/17. During the ED evaluation the daughter then demanded to have the patient return to inpatient hospice care to continue her on her antibiotic with IV fluids. Arrangements were in process to have that transfer effected when the daughter again changed her mind and requested that the patient be admitted to [facility] as an inpatient. ED course: * Laboratory studies WBC 14.9, hemoglobin 10.6, hematocrit 34.1, platelets 294, sodium 143, potassium 4.4, BUN 36, creatinine 0.34, glucose 56. Urinalysis was negative. * Radiology- chest x-ray showed acute pneumonia possible at the right lung base in the proper clinical setting, otherwise mainly chronic appearing bilateral interstitial disease with right-sided volume loss. This evaluation shows an elderly thin female lying in bed agitated and confused. She is straining to sit up and yelling "no, no no". She denies pain or shortness of breath but is calling for her sister, Celina, who is according to her son, Nael, who is at bedside. She is heard to have a gargling type cough and food is seen to be retained in her mouth. She keeps her eyes closed, does not make eye contact or interact with those around her. Her son, Nael, who is at bedside lives in [place] and is unsure what she has looked like recently, but states he calls her twice a week and she is normally able to converse with him. She has mild forgetfulness but no dementia to his knowledge. She lives with her daughter, also named Josey, locally in [place]. . Function/Cognitive Trajectory She lives at home with the assistance of her daughter, requires a walker or cane for ambulation and is on continuous oxygen. She continues to smoke. Her previous habit had been 2 packs per day but she has reduced her intake somewhat recently. Her daughter with whom she lives also smokes heavily. Patient had a recent fall injuring her left hip and required rehabilitation at [facility] in [place]. Upon her discharge from [facility] she did tell both of her children that she did not want to go back for rehabilitation anymore. She just wanted to be comfortable. Her appetite has declined and she is currently seen to be pocketing food, placing her at even higher risk of aspiration. Per the son she has had multiple episodes of pneumonia commonly more in recent years. . 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 Past Surgical History Surgery for left hip fracture 1996 Resection of epiglottis for cancer treatment Hysterectomy Left wrist surgery . Reported Medications Reported Meds & Active Scripts Active Zithromax Z-Miguel Ángel (Azithromycin) 250 Mg Dspk 250 Mg PO DIRECTED 500 MG (2 tabs) day 1, then 1 tab days 2-5. Reported Prednisone 10 Mg Tab 10 Mg PO DAILY Paroxetine (Paroxetine HCl) 40 Mg Tab 40 Mg PO DAILY Levothyroxine (Levothyroxine Sodium) 50 Mcg Tab 50 Mcg PO DAILY Gabapentin 100 Mg Cap 200 Mg PO BID Aspirin 325 Mg Tab 325 Mg PO DAILY Morphine Inj (Morphine Sulfate) 10 Mg/Ml Inj 5 Mg SQ PRN Morphine Inj (Morphine Sulfate) 10 Mg/Ml Inj 2.5 Mg SQ PRN Ativan Inj (Lorazepam) 2 Mg/Ml Inj 1 Mg SQ TID PRN Ativan Inj (Lorazepam) 2 Mg/Ml Inj 0.5 Mg IM TID PRN Potassium Chloride Microencaps 10 Meq Tab 10 Meq PO DAILY Sennosides 8.6 Mg Tab 17.2 Mg PO HS [Morphine 20MG/Ml] 5 Mg PO [Morphine 20MG/Ml] 10 Mg PO Duoneb (Ipratropium-Albuterol Neb) 0.5-2.5 Mg/3 Ml Neb 1 Nebule INH Q4HR NEB [place] (Hydrocodone-Acetaminophen) 5-325 mg Tab 1 Tab PO Q4H PRN Lasix (Furosemide) 20 Mg Tab 20 Mg PO DAILY Alprazolam 0.5 Mg Tab 0.5 Mg PO Q4H PRN Alprazolam 0.5 Mg Tab 1 Mg PO Q4H PRN . Current Medications Medications (Trade) Dose Ordered Sig/Martha Route Start Time Stop Time Status Last Admin Potassium Chloride/Dextrose/ Sod Cl 1,000 ml @ 42 mls/hr [id number] IV 04/10/17 13:45 04/10/17 14:39 Levofloxacin/ Dextrose 150 ml @ 100 mls/hr Q24H IV 04/10/17 16:00 04/10/17 17:42 (Tylenol) 650 mg Q4H PRN PO 04/10/17 14:15 (Zofran Inj) 4 mg Q6H PRN IVP 04/10/17 14:15 (Lovenox Inj) 30 mg Q24H SQ 04/10/17 15:00 04/10/17 17:42 (Narcan Inj) 0.4 mg UNSCH PRN IV PUSH 04/10/17 14:15 (Milk Of Magnesia Liq) 30 ml Q12H PRN PO 04/10/17 14:15 (Senokot) 17.2 mg Q12H PRN PO 04/10/17 14:15 (Dulcolax Supp) 10 mg DAILY PRN RECTAL 04/10/17 14:15 (Lactulose Liq) 30 ml DAILY PRN PO 04/10/17 14:15 (Xanax) 0.5 mg Q4H PRN PO 04/10/17 14:15 04/11/17 09:21 (Aspirin) 325 mg DAILY PO 04/11/17 09:00 04/11/17 09:00 (Neurontin Liq) 200 mg BID PO 04/10/17 21:00 10/3/17 09:05 ([place] 5-325 Mg) 1 tab Q4H PRN PO 04/10/17 14:15 (Duoneb Neb) 1 ampule Q4HR NEB INH 04/10/17 16:00 04/11/17 11:14 (Synthroid) 50 mcg DAILY@0600 PO 04/11/17 06:00 (Paxil) 40 mg DAILY PO 04/11/17 09:00 04/11/17 09:00 (Deltasone) 10 mg DAILY PO 04/11/17 09:00 04/11/17 09:00 (Senokot) 17.2 mg HS PO 04/10/17 21:00 04/10/17 21:14 Aztreonam 2000 mg/ Sodium Chloride 100 ml @ 200 mls/hr Q8H IV 04/10/17 17:00 04/11/17 09:01 . Family History Her mother at 83 of natural causes, her father in his late 60s or early 70s of presumed cardiac disease. She has 2 sisters, also both heavy smokers in her late 70s to early 80s from COPD causes. . Substance Use Tobacco: Has smoked 2 packs a day since her teens, approximately 75 years equals 150 pack years. Alcohol: No significant alcohol use. Prescription med abuse: No history of prescription drug abuse. Illicits: No history of illicit drug use . Psychosocial History Born in [place] she lived there most of her life, marrying and raising her children there. 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 She was in November 2015. . Spiritual/Cultural Factors She was raised Jainism but took her children to the [employer]. She has no strong spiritual beliefs. . Physical Exam Vital Signs Date Time Temp Pulse Resp B/P (MAP) Pulse Ox O2 Delivery O2 Flow Rate FiO2 04/11/17 12:00 97.8 96 18 104/51 (68) 96 04/11/17 09:28 Nasal Cannula 3.00 04/11/17 09:28 102 04/11/17 08:00 98.0 92 18 157/66 (96) 04/11/17 07:42 94 Nasal Cannula 2.00 04/11/17 04:00 97.6 82 18 154/63 (93) 93 04/11/17 04:00 Nasal Cannula 2.00 04/11/17 00:00 Nasal Cannula 2.00 04/11/17 00:00 97.9 60 20 137/58 (84) 94 04/10/17 20:00 98.0 112 20 137/81 (99) 92 04/10/17 20:00 Nasal Cannula 2.00 04/10/17 18:35 97.7 83 16 143/67 (92) 93 04/10/17 13:45 80 14 124/57 (79) 99 Room Air . Exam CONSTITUTIONAL/GENERAL: This is a thin, elderly, ill appearing female in mild distress. TUBES/LINES/DRAINS: Right forearm PIV SKIN: Thin, fragile, healing skin tears seen. HEAD: Atraumatic. Normocephalic. EYES: Would not open eyes for exam. Clenched shut. NECK: Trachea midline. Supple, nontender. No palpable thyroid enlargement or nodularity. CARDIOVASCULAR: Regular rate and rhythm without murmurs, gallops, or rubs. No JVD. Peripheral pulses symmetric. RESPIRATORY/CHEST: Lungs sounds diminished with scattered rhonchi and wheezes. GASTROINTESTINAL: Abdomen soft, non-tender, nondistended. No hepato-splenomegaly , or palpable masses. No guarding. Bowel sounds present. GENITOURINARY: Without palpable bladder distension. MUSCULOSKELETAL: Extremities without clubbing, cyanosis, or edema. Generalized weakness. NEUROLOGICAL: Awake, moving all extremities, confused, agitated. PSYCHIATRIC: Agitated, confused, anxious. . Diagnostic Tests Laboratory Laboratory Tests Test 04/10/17 02:20 04/11/17 08:05 White Blood Count 14.9 TH/MM3 (4.0-11.0) 13.2 TH/MM3 (4.0-11.0) Red Blood Count 3.85 MIL/MM3 (4.00-5.30) 3.97 MIL/MM3 (4.00-5.30) Hemoglobin 10.6 GM/DL (11.6-15.3) 11.1 GM/DL (11.6-15.3) Hematocrit 34.1 % (35.0-46.0) 35.0 % (35.0-46.0) Mean Corpuscular Volume 88.5 FL (80.0-100.0) 88.3 FL (80.0-100.0) Mean Corpuscular Hemoglobin 27.4 PG (27.0-34.0) 28.0 PG (27.0-34.0) Mean Corpuscular Hemoglobin Concent 31.0 % (32.0-36.0) 31.7 % (32.0-36.0) Red Cell Distribution Width 23.5 % (11.6-17.2) 25.0 % (11.6-17.2) Platelet Count 294 TH/MM3 (150-450) 276 TH/MM3 (150-450) Mean Platelet Volume 7.3 FL (7.0-11.0) 7.7 FL (7.0-11.0) Neutrophils (%) (Auto) 88.3 % (16.0-70.0) 86.9 % (16.0-70.0) Lymphocytes (%) (Auto) 4.7 % (9.0-44.0) 5.0 % (9.0-44.0) Monocytes (%) (Auto) 6.0 % (0.0-8.0) 6.5 % (0.0-8.0) Eosinophils (%) (Auto) 0.2 % (0.0-4.0) 1.3 % (0.0-4.0) Basophils (%) (Auto) 0.8 % (0.0-2.0) 0.3 % (0.0-2.0) Neutrophils # (Auto) 13.2 TH/MM3 (1.8-7.7) 11.4 TH/MM3 (1.8-7.7) Lymphocytes # (Auto) 0.7 TH/MM3 (1.0-4.8) 0.7 TH/MM3 (1.0-4.8) Monocytes # (Auto) 0.9 TH/MM3 (0-0.9) 0.9 TH/MM3 (0-0.9) Eosinophils # (Auto) 0.0 TH/MM3 (0-0.4) 0.2 TH/MM3 (0-0.4) Basophils # (Auto) 0.1 TH/MM3 (0-0.2) 0.0 TH/MM3 (0-0.2) CBC Comment DIFF FINAL DIFF FINAL Differential Comment Urine Color YELLOW (YELLW/STRAW) Urine Turbidity CLEAR (CLEAR) Urine pH 5.0 (5.0-8.5) Urine Specific [place] 1.014 (1.002-1.035) Urine Protein NEG mg/dL (NEG-TRACE) Urine Glucose (UA) NEG mg/dL (NEG) Urine Ketones 40 mg/dL (NEG) Urine Occult Blood NEG (NEG) Urine Nitrite NEG (NEG) Urine Bilirubin NEG (NEG) Urine Urobilinogen LESS THAN 2.0 MG/DL (LESS Urine Leukocyte Esterase TRACE (NEG) Urine RBC 5 /hpf (0-3) Urine WBC 4 /hpf (0-5) Urine Hyaline Casts 3 /lpf (RARE) Urine Mucus FEW /lpf (OCC) Microscopic Urinalysis Comment CATH-CULT NOT IND Blood Urea Nitrogen 36 MG/DL (7-18) 35 MG/DL (7-18) Creatinine 0.34 MG/DL (0.50-1.00) 0.63 MG/DL (0.50-1.00) Random Glucose 56 MG/DL (74-106) 149 MG/DL (74-106) Calcium Level 8.8 MG/DL (8.5-10.1) 9.4 MG/DL (8.5-10.1) Sodium Level 143 MEQ/L (136-145) 140 MEQ/L (136-145) Potassium Level 4.4 MEQ/L (3.5-5.1) 4.6 MEQ/L (3.5-5.1) Chloride Level 101 MEQ/L (98-107) 102 MEQ/L (98-107) Carbon Dioxide Level 35.8 MEQ/L (21.0-32.0) 31.8 MEQ/L (21.0-32.0) Anion Gap 6 MEQ/L (5-15) 6 MEQ/L (5-15) Estimat Glomerular Filtration Rate 177 ML/MIN (>89) 89 ML/MIN (>89) . Result Diagram: 04/11/1780404/11/17804 Microbiology Microbiology Date/Time Source Procedure Growth Status 04/10/17 05:40 Blood Peripheral Aerobic Blood Culture - Preliminary NO GROWTH IN 1 DAY Resulted 04/10/17 05:40 Blood Peripheral Anaerobic Blood Culture - Preliminary NO GROWTH IN 1 DAY Resulted 04/10/17 05:35 Blood Peripheral Aerobic Blood Culture - Preliminary NO GROWTH IN 1 DAY Resulted 04/10/17 05:35 Blood Peripheral Anaerobic Blood Culture - Preliminary NO GROWTH IN 1 DAY Resulted . Imaging Last Impressions Chest X-Ray 04/10/17 0000 Signed Impressions: Service Date/Time: Monday, April 10, 2017 04:02 - CONCLUSION: Acute pneumonia possible of the right lung base in the proper clinical setting. Otherwise mainly chronic appearing bilateral interstitial disease with right-sided volume loss. Corby Villarreal MD . Patient/Family Conference Present at Family Conference: Son, Nael, was present at conference. Previous arrangements had been made for sister, Josey to attend however she did not arrive at hospital as promised. . Family Conference Time (mins): 90 Family Conference Location: [facility] Issues Discussed: Held a very long discussion with the son regarding the following items. In addition, patient history and family dynamics were discussed. The brother does express concern regarding his sister's ability to care for their mother as she has multiple health concerns of her own. He is concerned that she may have developed a substance abuse problem which could be of concern for medication diversion or the patient to return home with her. The son would like to transport the mother to [place] for further care as she has multiple family members in the area and he feels he could provide care for her there. Case management will be consulted to evaluate placement possibilities. * Palliative care role, purpose, approach * Additional medical, psychosocial, and spiritual history * Patients general health, functional status, and cognitive changes in the months leading up to the current hospitalization * Patient/family understanding of the current medical problems * Patient/family understanding of prognosis * Patients goals of care as best understood from advance directives and/or conversations and/or values * Current medical treatment options and benefits/burdens of those options * Likely scenarios comparing ongoing aggressive care with a transition to comfort measures only * Questions answered to the best of my ability * Palliative care contact information provided . Assessment and Plan Pertinent Non-Medical Issues Psychosocial:Born in [place] she lived there most of her life, marrying and raising her children there. 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 She was in November 2015. Spiritual:She was raised Jainism but took her children to the [employer]. She has no strong spiritual beliefs. Legal: She has 3 living children who will serve as her joint healthcare proxy. She did not complete a healthcare surrogate form. Ethical issues impacting care: None noted at this time. . Important Contacts Son - Nael Jamil [phone] Son - Luke Silverio [phone] Daughter - Josey Murrieta [phone] Prognosis Her prognosis is poor. In addition to advanced age she has end-stage COPD, complicated by diastolic heart failure, likely aspiration pneumonia, recurrent and failure to thrive. Her appetite is declined she is now pocketing food and at much higher risk for aspiration given her history of epiglottis cancer status post resection. She is now oxygen dependent and continues to smoke. She is at very high risk for recurrent hospitalizations. Code Status: No Code Plan PLAN: Legal decision maker: She has 3 children, Nael Jamil, Josey Murrieta, Luke Silverio who served as joint HCP's. Goals: They wished to attempt one more stay at rehabilitation but remain comfort oriented. CODE STATUS: DNR SYMPTOMS: * Agitation - she is currently receiving Xanax 0.5 mg every 4 hours as needed for anxiety. Could consider the addition of Haldol to decrease symptoms without excessive sedation. * Confusion - probably multi-factorial, to include pneumonia, possible sepsis, underlying comorbidities. Narcotics have been minimized and she has received only Ativan in minimal doses due to concerns of polypharmacy. * Dyspnea - end-stage COPD, chronically oxygen dependent on long-term steroids. On admission she was also found to have right-sided pneumonia, questionably aspiration in origin. Would recommend speech therapy evaluation to evaluate for aspiration. * Pain - [place] 5/325 was ordered as needed for pain. At this time patient is denying any pain. Her son agrees that mild pain management would be acceptable to the family to maximize patient's rehabilitation potential, however he is aware that she is at end-stage disease process. In summary this is an 86-year-old female admitted with pneumonia, confusion and agitation who was recently admitted to a hospice care center. Family has decided they wish to attempt rehabilitation one more time if the patient's confusion clears enough for her to cooperate with rehabilitation. They are concerned about oversedation and wished to try to find a better balance between symptom management and sedation. She has had multiple episodes of pneumonia in the past, likely aspiration, as she had previously had epiglottis cancer with resection approximately 30 years ago and required tube feeding for many months until she was able to regain the ability to swallow. This puts her at much higher risk of aspiration difficulties and given her history she will likely continue to aspirate and require recurrent hospital admissions. The son, Nael , expressed a wish to bring his mother back to [place] with him or placement and care closer to the remaining members of her family. Recommend consult pending case management for discussion with the son regarding placement options. Palliative care will continue to follow the patient during hospital course as condition evolves, to assist patient/decision-maker with understanding of their medical conditions, weighing benefits/burdens of treatment options, for clarification of goals of treatment. Additionally will assist with any symptoms of palliative concern Thank you for the opportunity to participate in the care of Ms. Jamil. Attestation To help prompt me to consider important information that might be impacting today's encounter and assessment, information from prior notes written by myself or my colleagues may have been "brought forward" into today's note. My signature on this note, however, is an attestation that I personally performed the exam, history, and/or decision-making noted today, and, unless otherwise indicated, the interactions with patient, family, and staff as well as the review of records all occurred today. I also attest that the listed assessment and stated plan reflect my best clinical judgment today based on the combination of historical information, prior notes, and today's exam/ interactions. When time spent is documented, it refers only to time spent today by the signer, or if indicated, combined time spent today by collaborating physician/nurse practitioner. . Cassie Fatima Apr 11, 2017 2:13 pm
[2017-04-11] MEDS: D5-1/2 NS + KCL 20 MEQ INJ 1,000 ML IV SCH (14:20)
[2017-04-11] MEDS: ENOXAPARIN SODIUM 30 MG/0.3 ML SYRINGE SQ SCH (17:15)
[2017-04-11] MEDS: LEVOFLOXACIN 750 MG PREMIX INJ 150 ML IV SCH (17:15)
[2017-04-11] MEDS: SENNOSIDES 8.6 MG TAB PO SCH (20:39)
[2017-04-12] VITALS (9 sets, daily range): BP systolic 102–140; BP diastolic 47–67; PULSE 76–103; RESP 18–22; TEMP 97.6–98.7; O2SAT 92–99
[2017-04-12] MEDS: RESP: ALBUTEROL 2.5 MG/IPRATROPIUM 0.5 MG NEB (SCH) INH ×5 (00:31→18:58)
[2017-04-12] MEDS: AZTREONAM INJ 2,000 MG in SODIUM CHLORIDE 0.9% INJ 100 ML IV SCH ×3 (01:20→18:02)
[2017-04-12] MEDS: LEVOTHYROXINE SODIUM 50 MCG TAB PO SCH (06:00)
[2017-04-12] MEDS: predniSONE 10 MG TAB PO SCH (10:20)
[2017-04-12] MEDS: GABAPENTIN 250 MG/5 ML UDC PO SCH ×2 (10:21→21:00)
[2017-04-12] MEDS: ASPIRIN 325 MG TAB PO SCH (10:21)
[2017-04-12] MEDS: PARoxetine HCL 20 MG TAB PO SCH (10:21)
[2017-04-12 10:33] LABS: AUTOMATED NEUTROPHIL # 12.7 TH/MM3 (1.8-7.7); BASOPHIL % 0.3 % (0.0-2.0); EOSINOPHIL # 0.1 TH/MM3 (0-0.4); EOSINOPHIL % 0.7 % (0.0-4.0); HEMATOCRIT 30.1 % (35.0-46.0); LYMPH % 7.1 % (9.0-44.0); LYMPHOCYTE # 1.1 TH/MM3 (1.0-4.8); MEAN CORPUSCULAR HEMOGLOBIN 26.9 PG (27.0-34.0); MEAN CORPUSCULAR HGB CONC 30.2 % (32.0-36.0); MONO % 8.7 % (0.0-8.0); NEUT % 83.2 % (16.0-70.0); PLATELET COUNT 351 TH/MM3 (150-450); RED BLOOD COUNT 3.38 MIL/MM3 (4.00-5.30); RED CELL DISTRIBUTION WIDTH 25.6 % (11.6-17.2); WHITE BLOOD COUNT 15.3 TH/MM3 (4.0-11.0)
[2017-04-12 10:34] LABS: HEMO FLAGS AUTO DIFF
[2017-04-12 10:49] LABS: BICARBONATE 30.3 MEQ/L (21.0-32.0)
[2017-04-12] MEDS ORDERED: GLUCAGON 1 MG/ML VIAL OTHER PRN (11:30)
[2017-04-12] MEDS ORDERED: INSULIN ASPART 1,000 UNITS/10 ML VIAL SQ ONE (11:30)
[2017-04-12] MEDS ORDERED: DEXTROSE 50% IN WATER 50 ML VIAL(D50) IV PUSH PRN (11:30)
[2017-04-12 11:56] LABS: BANDS 11 % (0-6); EOSINOPHILS 1 % (0-4); NEUTROPHIL # MANUAL DIFF 13.2 TH/MM3 (1.8-7.7); POLYS (SEG NEUTROPHILS) 75 % (16-70); WBC DIFF SAMPLE 100
[2017-04-12 11:57] LABS: ACANTHOCYTES OCC (NORMAL); OVALOCYTES 1+ (NORMAL)
[2017-04-12 11:58] LABS: SCAN/DIFF FINAL DIFF MANUAL
[2017-04-12] MEDS: INSULIN ASPART SUPPLEMENTAL SCALE SQ SCH ×3 (12:00→19:37)
[2017-04-12] MEDS: D5-1/2 NS + KCL 20 MEQ INJ 1,000 ML IV SCH ×2 (13:30→20:56)
--- NOTE | 2017-04-12 14:03 | HHI.PR ---
Subjective Remarks Follow-up pneumonia, encephalopathy. Patient denies pain. Denies shortness of breath. She is more alert today. Objective Vitals Vital Signs Date Time Temp Pulse Resp B/P (MAP) Pulse Ox O2 Delivery O2 Flow Rate FiO2 04/12/17 12:00 98.7 83 20 107/56 (73) 94 04/12/17 10:42 93 Nasal Cannula 6.00 04/12/17 08:00 97.7 94 20 138/62 (87) 93 04/12/17 04:00 Nasal Cannula 2.00 04/12/17 03:48 98.4 76 20 102/47 (65) 92 04/12/17 00:39 98.3 92 18 130/67 (88) 96 04/12/17 00:31 94 Nasal Cannula 4.00 04/12/17 00:00 Nasal Cannula 2.00 04/11/17 20:24 97.7 69 16 114/53 (73) 95 04/11/17 20:00 77 04/11/17 20:00 Nasal Cannula 2.00 04/11/17 16:04 96 Nasal Cannula 2.00 04/11/17 16:00 97.6 92 18 140/59 (86) 91 I/O 04/11/17 04/11/17 04/11/17 04/12/17 04/12/17 04/12/17 07:00 15:00 23:00 07:00 15:00 23:00 Intake Total 0 ml 0 ml 100 ml Output Total 1200 ml Balance -1200 ml 0 ml 100 ml Intake Oral 0 ml 0 ml IV Total 100 ml Output Urine Total 1200 ml # Voids 1 # Bowel Movements 0 1 Result Diagram: 04/12/17 0850 04/12/17 0850 Imaging Last Impressions Chest X-Ray 04/10/17 0000 Signed Impressions: Service Date/Time: Monday, April 10, 2017 04:02 - CONCLUSION: Acute pneumonia possible of the right lung base in the proper clinical setting. Otherwise mainly chronic appearing bilateral interstitial disease with right-sided volume loss. Corby Villarreal MD Objective Remarks General: No acute distress. Heart: Regular rate and rhythm. No murmur. Lungs: Bilateral rhonchi. Breathing is nonlabored. Abdomen: Soft, nontender, nondistended. Extremities: No lower extremity edema. Ecchymosis extending down the left leg from the hip to the mid calf. Psych: Sleeping, but awakens easily and answers questions. She is aware that she is in the hospital, but is not oriented to year/month. Procedures None Urinary Catheter: No Vascular Central Line Catheter: No A/P Problem List: (1) Encephalopathy ICD Code: G93.40 - Encephalopathy, unspecified (2) COPD (chronic obstructive pulmonary disease) ICD Code: J44.9 - Chronic obstructive pulmonary disease, unspecified (3) Tobacco abuse ICD Code: Z72.0 - Tobacco use (4) Hypothyroidism ICD Code: E03.9 - Hypothyroidism, unspecified (5) Pneumonia ICD Code: J18.9 - Pneumonia, unspecified organism Status: Acute (6) Dehydration, mild ICD Code: E86.0 - Dehydration Status: Acute Assessment and Plan 1. Sepsis secondary to pneumonia: Continue IV antibiotics. Blood cultures are negative so far. Continue supplemental oxygen. Scheduled DuoNeb. 2. Encephalopathy: Mental status improving. Likely secondary to infection, dehydration. May also be a component of medication effect. Will limit sedating medications. Fall precautions. 3. End-stage COPD with ongoing tobacco abuse: Patient had been under hospice care, but this was revoked prior to admission. Continue duo nebs, supplemental oxygen, prednisone. 4. Hypothyroidism: Continue Synthroid. 5. Chronic anemia: Monitor labs. 6. Postherpetic neuralgia: Continue gabapentin. 7. Recurrent falls: Physical therapy. 8. Left hip pain status post recent fall: X-[facility] at the [facility] was reportedly negative. 9. DVT prophylaxis: JIMMYs, HUMPHREY rios. 10. Appreciate palliative care assistance. Problem Qualifiers (1) Pneumonia: Qualified Codes: J18.1 - Lobar pneumonia, unspecified organism Ephraim Godinez MD Apr 12, 2017 14:03
--- NOTE | 2017-04-12 17:03 | HHI.HCPN ---
Reason for visit a. To assist with evaluation and management of symptoms including: Agitation , confusion, dyspnea, pain b. To assist medical decision maker(s) with: better understanding of current medical conditions; weighing benefits/burdens of medical treatment options; making medical treatment decisions. . Subjective/Interval History This is an 86-year-old female that was brought to the emergency department from [facility] by her daughter as the daughter had decided to rescind hospice and try aggressive treatment for her mother. She was admitted to hospice for end-stage COPD and diastolic heart failure. She has chronic anemia and had a recent fall which showed no fracture by x-ray. Patient was admitted to the [facility] for pain and agitation not able to be controlled in her previous setting. On evaluation in the ED physician reports the patient was drowsy but awakens to name and doses back off to sleep. She was in no acute respiratory distress. At the daughter's request all narcotics were held. Her last administration of Ativan or morphine was at 16:40 5 PM on 04/09/17. During the ED evaluation the daughter then demanded to have the patient return to inpatient hospice care to continue her on her antibiotic with IV fluids. Arrangements were in process to have that transfer effected when the daughter again changed her mind and requested that the patient be admitted to [place] [facility] as an inpatient. Interim history * Laboratory - WBC 15.3, hemoglobin 9.1, hematocrit 30.1, platelets 351, sodium 137, potassium 6.0, BUN 23, creatinine 0.63. * Physical therapy assessment indicates patient is at high risk for skin breakdown and contractures due to immobility and pain and is at high risk for falls due to compromised balance, altered mental status and altered gait. Rehabilitation potential is good for stated goals of min to mod assist for supine to sit transfers, able to sit unsupported at edge of bed for 30 seconds, min to mod assist for bed to chair transfers. She is much more alert and speech is fairly clear at this evaluation. She is smiling, thanking me for attention, knows that Harsha and Luke are her sons, Josey is her daughter. When asked about rehabilitation she said she would be in favor of that. . Family/friend interactions Was contacted by phone by the daughter Josey in conference with her brother, Luke. The daughter states that she and her brother, Luke, have medical power of associate attorney. I have requested that she bring those forms in for recording in the chart and informed her that until those forms are received, decision-making will fall to all 3 children equally. She wishes the patient to be returned to her home with hospice care. After discussion regarding her mother's current condition both decided that rehabilitation would be their first goal. This is consistent with my conversation with the other brother, Nael, 04/11. The daughter agrees to a in-hospital meeting on 04/12 at 10 AM to discuss options. Notified case management of family goals and their preferred facility of [facility] with an alternate facility of [facility]. Daughter had called hospice to request resuming services. For this reason the hospice admission nurse has been requested to attend the meeting to provide information regarding that option based on the outcome of the rehabilitation evaluation. . Advance Directives Living Will: Never completed Health Care Surrogate: Never completed Durable Power of Mortgage Banker: Never completed Objective Vital Signs Date Time Temp Pulse Resp B/P (MAP) Pulse Ox O2 Delivery O2 Flow Rate FiO2 04/12/17 12:00 98.7 83 20 107/56 (73) 94 04/12/17 10:42 93 Nasal Cannula 6.00 04/12/17 08:00 97.7 94 20 138/62 (87) 93 04/12/17 04:00 Nasal Cannula 2.00 04/12/17 03:48 98.4 76 20 102/47 (65) 92 04/12/17 00:39 98.3 92 18 130/67 (88) 96 04/12/17 00:31 94 Nasal Cannula 4.00 04/12/17 00:00 Nasal Cannula 2.00 04/11/17 20:24 97.7 69 16 114/53 (73) 95 04/11/17 20:00 77 04/11/17 20:00 Nasal Cannula 2.00 Intake & Output 04/12/17 04/12/17 07:00 19:00 Intake Total 100 ml Balance 100 ml IV Total 100 ml Physical Exam CONSTITUTIONAL/GENERAL: This is a thin, elderly, ill appearing female in no acute distress. TUBES/LINES/DRAINS: Right forearm PIV SKIN: Thin, fragile, healing skin tears seen. HEAD: Atraumatic. Normocephalic. EYES: Open spontaneously, extraocular movements intact, PERRLA NECK: Trachea midline. Supple, nontender. No palpable thyroid enlargement or nodularity. CARDIOVASCULAR: Regular rate and rhythm without murmurs, gallops, or rubs. No JVD. Peripheral pulses symmetric. RESPIRATORY/CHEST: Lungs sounds diminished with scattered rhonchi and wheezes. GASTROINTESTINAL: Abdomen soft, non-tender, nondistended. No hepato-splenomegaly , or palpable masses. No guarding. Bowel sounds present. GENITOURINARY: Without palpable bladder distension. MUSCULOSKELETAL: Extremities without clubbing, cyanosis, or edema. Generalized weakness. NEUROLOGICAL: Awake, responding appropriately, verbalizes recognition of her children names. PSYCHIATRIC: Calm, cooperative, pleasant. . Diagnostic Tests Laboratory Laboratory Tests Test 04/10/17 02:20 04/11/17 08:05 04/12/17 08:50 White Blood Count 14.9 TH/MM3 (4.0-11.0) 13.2 TH/MM3 (4.0-11.0) 15.3 TH/MM3 (4.0-11.0) Red Blood Count 3.85 MIL/MM3 (4.00-5.30) 3.97 MIL/MM3 (4.00-5.30) 3.38 MIL/MM3 (4.00-5.30) Hemoglobin 10.6 GM/DL (11.6-15.3) 11.1 GM/DL (11.6-15.3) 9.1 GM/DL (11.6-15.3) Hematocrit 34.1 % (35.0-46.0) 35.0 % (35.0-46.0) 30.1 % (35.0-46.0) Mean Corpuscular Volume 88.5 FL (80.0-100.0) 88.3 FL (80.0-100.0) 89.0 FL (80.0-100.0) Mean Corpuscular Hemoglobin 27.4 PG (27.0-34.0) 28.0 PG (27.0-34.0) 26.9 PG (27.0-34.0) Mean Corpuscular Hemoglobin Concent 31.0 % (32.0-36.0) 31.7 % (32.0-36.0) 30.2 % (32.0-36.0) Red Cell Distribution Width 23.5 % (11.6-17.2) 25.0 % (11.6-17.2) 25.6 % (11.6-17.2) Platelet Count 294 TH/MM3 (150-450) 276 TH/MM3 (150-450) 351 TH/MM3 (150-450) Mean Platelet Volume 7.3 FL (7.0-11.0) 7.7 FL (7.0-11.0) 7.4 FL (7.0-11.0) Neutrophils (%) (Auto) 88.3 % (16.0-70.0) 86.9 % (16.0-70.0) 83.2 % (16.0-70.0) Lymphocytes (%) (Auto) 4.7 % (9.0-44.0) 5.0 % (9.0-44.0) 7.1 % (9.0-44.0) Monocytes (%) (Auto) 6.0 % (0.0-8.0) 6.5 % (0.0-8.0) 8.7 % (0.0-8.0) Eosinophils (%) (Auto) 0.2 % (0.0-4.0) 1.3 % (0.0-4.0) 0.7 % (0.0-4.0) Basophils (%) (Auto) 0.8 % (0.0-2.0) 0.3 % (0.0-2.0) 0.3 % (0.0-2.0) Neutrophils # (Auto) 13.2 TH/MM3 (1.8-7.7) 11.4 TH/MM3 (1.8-7.7) 12.7 TH/MM3 (1.8-7.7) Lymphocytes # (Auto) 0.7 TH/MM3 (1.0-4.8) 0.7 TH/MM3 (1.0-4.8) 1.1 TH/MM3 (1.0-4.8) Monocytes # (Auto) 0.9 TH/MM3 (0-0.9) 0.9 TH/MM3 (0-0.9) 1.3 TH/MM3 (0-0.9) Eosinophils # (Auto) 0.0 TH/MM3 (0-0.4) 0.2 TH/MM3 (0-0.4) 0.1 TH/MM3 (0-0.4) Basophils # (Auto) 0.1 TH/MM3 (0-0.2) 0.0 TH/MM3 (0-0.2) 0.0 TH/MM3 (0-0.2) CBC Comment DIFF FINAL DIFF FINAL AUTO DIFF Differential Comment FINAL DIFF MANUAL Urine Color YELLOW (YELLW/STRAW) Urine Turbidity CLEAR (CLEAR) Urine pH 5.0 (5.0-8.5) Urine Specific [place] 1.014 (1.002-1.035) Urine Protein NEG mg/dL (NEG-TRACE) Urine Glucose (UA) NEG mg/dL (NEG) Urine Ketones 40 mg/dL (NEG) Urine Occult Blood NEG (NEG) Urine Nitrite NEG (NEG) Urine Bilirubin NEG (NEG) Urine Urobilinogen LESS THAN 2.0 MG/DL (LESS Urine Leukocyte Esterase TRACE (NEG) Urine RBC 5 /hpf (0-3) Urine WBC 4 /hpf (0-5) Urine Hyaline Casts 3 /lpf (RARE) Urine Mucus FEW /lpf (OCC) Microscopic Urinalysis Comment CATH-CULT NOT IND Blood Urea Nitrogen 36 MG/DL (7-18) 35 MG/DL (7-18) 23 MG/DL (7-18) Creatinine 0.34 MG/DL (0.50-1.00) 0.63 MG/DL (0.50-1.00) 0.63 MG/DL (0.50-1.00) Random Glucose 56 MG/DL (74-106) 149 MG/DL (74-106) 482 MG/DL (74-106) Calcium Level 8.8 MG/DL (8.5-10.1) 9.4 MG/DL (8.5-10.1) 7.9 MG/DL (8.5-10.1) Sodium Level 143 MEQ/L (136-145) 140 MEQ/L (136-145) 137 MEQ/L (136-145) Potassium Level 4.4 MEQ/L (3.5-5.1) 4.6 MEQ/L (3.5-5.1) 6.0 MEQ/L (3.5-5.1) Chloride Level 101 MEQ/L (98-107) 102 MEQ/L (98-107) 104 MEQ/L (98-107) Carbon Dioxide Level 35.8 MEQ/L (21.0-32.0) 31.8 MEQ/L (21.0-32.0) 30.3 MEQ/L (21.0-32.0) Anion Gap 6 MEQ/L (5-15) 6 MEQ/L (5-15) 3 MEQ/L (5-15) Estimat Glomerular Filtration Rate 177 ML/MIN (>89) 89 ML/MIN (>89) 89 ML/MIN (>89) Differential Total Cells Counted 100 Neutrophils % (Manual) 75 % (16-70) Band Neutrophils % 11 % (0-6) Lymphocytes % 6 % (9-44) Monocytes % 7 % (0-8) Eosinophils % 1 % (0-4) Neutrophils # (Manual) 13.2 TH/MM3 (1.8-7.7) Ovalocytes 1+ (NORMAL) Acanthocytes OCC (NORMAL) . Result Diagram: 04/12/17 0850 04/12/17 0850 Microbiology Microbiology Date/Time Source Procedure Growth Status 04/10/17 05:40 Blood Peripheral Aerobic Blood Culture - Preliminary NO GROWTH IN 2 DAYS Resulted 04/10/17 05:40 Blood Peripheral Anaerobic Blood Culture - Preliminary NO GROWTH IN 2 DAYS Resulted 04/10/17 05:35 Blood Peripheral Aerobic Blood Culture - Preliminary NO GROWTH IN 2 DAYS Resulted 04/10/17 05:35 Blood Peripheral Anaerobic Blood Culture - Preliminary NO GROWTH IN 2 DAYS Resulted . Imaging Last Impressions Chest X-Ray 04/10/17 0000 Signed Impressions: Service Date/Time: Monday, April 10, 2017 04:02 - CONCLUSION: Acute pneumonia possible of the right lung base in the proper clinical setting. Otherwise mainly chronic appearing bilateral interstitial disease with right-sided volume loss. Corby Villarreal MD Assessment and Plan Pertinent Non-Medical Issues Psychosocial:Born in [place] she lived there most of her life, marrying and raising her children there. 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 She moved to [place] with her in 1996 after he retired. She was in November 2015. Spiritual:She was raised Mu-Ism but took her children to the [employer]. She has no strong spiritual beliefs. Legal: She has 3 living children who will serve as her joint healthcare proxy. She did not complete a healthcare surrogate form. Ethical issues impacting care: None noted at this time. . Important Contacts Son - Nael Jamil [phone] Son - Luke Silverio [phone] Daughter - Josey Murrieta [phone] Prognosis Her prognosis is poor. In addition to advanced age she has end-stage COPD, complicated by diastolic heart failure, likely aspiration pneumonia, recurrent and failure to thrive. Her appetite is declined she is now pocketing food and at much higher risk for aspiration given her history of epiglottis cancer status post resection. She is now oxygen dependent and continues to smoke. She is at very high risk for recurrent hospitalizations. Code Status: No Code Plan PLAN: Legal decision maker: She has 3 children, Nael Jamil, Josey Murrieta, Luke Silverio who served as joint HCP's. Goals: They wished to attempt one more stay at rehabilitation but remain comfort oriented. CODE STATUS: DNR SYMPTOMS: * Agitation -much improved today. She is calm and pleasant in bed. * Confusion - probably multi-factorial, to include pneumonia, possible sepsis, underlying comorbidities. Narcotics have been minimized and she has received only Xanax in minimal doses due to concerns of polypharmacy. Last dose 0.5 mg on 04/11/17 at bedtime. * Dyspnea - end-stage COPD, chronically oxygen dependent on long-term steroids. On admission she was also found to have right-sided pneumonia, questionably aspiration in origin. Speech therapy recommending pured diet with thin liquids, as patient is edentulous. * Pain - Bally 5/325 was ordered as needed for pain. At this time patient is denying any pain. Her son agrees that mild pain management would be acceptable to the family to maximize patient's rehabilitation potential, however he is aware that she is at end-stage disease process. She has taken no pain medication during admission. Palliative care will continue to follow the patient during hospital course as condition evolves, to assist patient/decision-maker with understanding of their medical conditions, weighing benefits/burdens of treatment options, for clarification of goals of treatment. Additionally will assist with any symptoms of palliative concern Attestation To help prompt me to consider important information that might be impacting today's encounter and assessment, information from prior notes written by myself or my colleagues may have been "brought forward" into today's note. My signature on this note, however, is an attestation that I personally performed the exam, history, and/or decision-making noted today, and, unless otherwise indicated, the interactions with patient, family, and staff as well as the review of records all occurred today. I also attest that the listed assessment and stated plan reflect my best clinical judgment today based on the combination of historical information, prior notes, and today's exam/ interactions. When time spent is documented, it refers only to time spent today by the signer, or if indicated, combined time spent today by collaborating physician/nurse practitioner. Cassie Fatima Apr 12, 2017 5:03 pm
[2017-04-12] MEDS: ENOXAPARIN SODIUM 30 MG/0.3 ML SYRINGE SQ SCH (17:58)
[2017-04-12] MEDS: LEVOFLOXACIN 750 MG PREMIX INJ 150 ML IV SCH (18:01)
[2017-04-12 18:07] LABS: BICARBONATE 35.8 MEQ/L (21.0-32.0); POTASSIUM 4.1 MEQ/L (3.5-5.1)
[2017-04-12] MEDS: ALPRAZolam 0.5 MG TAB PO PRN (19:18)
[2017-04-12] MEDS: SENNOSIDES 8.6 MG TAB PO SCH (20:59)
[2017-04-13] VITALS (11 sets, daily range): BP systolic 110–156; BP diastolic 53–67; PULSE 76–114; RESP 20–22; TEMP 97–98.9; O2SAT 90–100
[2017-04-13] MEDS: RESP: ALBUTEROL 2.5 MG/IPRATROPIUM 0.5 MG NEB (SCH) INH ×6 (00:44→19:14)
[2017-04-13] MEDS: AZTREONAM INJ 2,000 MG in SODIUM CHLORIDE 0.9% INJ 100 ML IV SCH ×3 (01:22→17:26)
[2017-04-13] MEDS: ALPRAZolam 0.5 MG TAB PO PRN ×2 (02:31→06:50)
[2017-04-13] MEDS: LEVOTHYROXINE SODIUM 50 MCG TAB PO SCH (04:51)
[2017-04-13] MEDS: INSULIN ASPART SUPPLEMENTAL SCALE SQ SCH (08:00)
[2017-04-13] MEDS: predniSONE 10 MG TAB PO SCH (08:42)
[2017-04-13] MEDS: PARoxetine HCL 20 MG TAB PO SCH (08:42)
[2017-04-13] MEDS: GABAPENTIN 250 MG/5 ML UDC PO SCH ×2 (08:43→21:01)
[2017-04-13] MEDS: ASPIRIN 325 MG TAB PO SCH (08:43)
--- NOTE | 2017-04-13 11:43 | HHI.PR ---
Subjective Remarks Follow-up pneumonia. The patient remains confused, but states that she feels much better today. She states that she wants to go home. Denies chest pain or dyspnea. Objective Vitals Vital Signs Date Time Temp Pulse Resp B/P (MAP) Pulse Ox O2 Delivery O2 Flow Rate FiO2 04/13/17 09:10 90 Nasal Cannula 4.00 04/13/17 09:02 Nasal Cannula 4.00 04/13/17 07:53 98.7 107 20 144/67 (92) 90 04/13/17 07:35 114 04/13/17 06:00 98.3 76 20 138/60 (86) 95 04/13/17 00:44 100 Nasal Cannula 3.00 04/13/17 00:00 Nasal Cannula 2.00 04/13/17 00:00 98.9 80 21 135/65 (88) 96 04/12/17 20:00 Nasal Cannula 2.00 04/12/17 20:00 83 04/12/17 20:00 97.9 88 22 140/66 (90) 95 04/12/17 18:58 99 Nasal Cannula 6.00 04/12/17 16:00 97.6 80 18 127/67 (87) 99 04/12/17 12:00 98.7 83 20 107/56 (73) 94 I/O 04/12/17 04/12/17 04/12/17 04/13/17 04/13/17 04/13/17 07:00 15:00 23:00 07:00 15:00 23:00 Intake Total 100 ml 480 ml 1130 ml Balance 100 ml 480 ml 1130 ml Intake Oral 480 ml 525 ml IV Total 100 ml 605 ml # Voids 3 1 # Bowel Movements 2 0 Result Diagram: 04/12/17 0850 04/12/17 1705 Imaging Last Impressions Chest X-Ray 04/10/17 0000 Signed Impressions: Service Date/Time: Monday, April 10, 2017 04:02 - CONCLUSION: Acute pneumonia possible of the right lung base in the proper clinical setting. Otherwise mainly chronic appearing bilateral interstitial disease with right-sided volume loss. Corby Villarreal MD Objective Remarks General: No acute distress. Sitting up in a chair. Heart: Regular rate and rhythm. No murmur. Lungs: Bilateral rhonchi. Breathing is nonlabored. Abdomen: Soft, nontender, nondistended. Extremities: No lower extremity edema. Ecchymosis extending down the left leg from the hip to the mid calf. Psych: Sleeping, but awakens easily and answers questions. She is aware that she is in the hospital, but is not oriented to year/month. Procedures None Urinary Catheter: No Vascular Central Line Catheter: No A/P Problem List: (1) Encephalopathy ICD Code: G93.40 - Encephalopathy, unspecified (2) COPD (chronic obstructive pulmonary disease) ICD Code: J44.9 - Chronic obstructive pulmonary disease, unspecified (3) Tobacco abuse ICD Code: Z72.0 - Tobacco use (4) Hypothyroidism ICD Code: E03.9 - Hypothyroidism, unspecified (5) Pneumonia ICD Code: J18.9 - Pneumonia, unspecified organism Status: Acute (6) Dehydration, mild ICD Code: E86.0 - Dehydration Status: Acute Assessment and Plan 1. Sepsis secondary to pneumonia: Continue IV antibiotics. Blood cultures are negative so far. Continue supplemental oxygen. Scheduled DuoNeb. Monitor WBCs. Labs are pending today. 2. Encephalopathy: Mental status improving, but patient remains confused. Likely secondary to infection, dehydration. May also be a component of medication effect. Will limit sedating medications. Fall precautions. 3. End-stage COPD with ongoing tobacco abuse: Patient had been under hospice care, but this was revoked prior to admission. Continue duo nebs, supplemental oxygen, prednisone. 4. Hypothyroidism: Continue Synthroid. 5. Chronic anemia: Monitor labs. 6. Postherpetic neuralgia: Continue gabapentin. 7. Recurrent falls: Physical therapy. 8. Left hip pain status post recent fall: X-ray at the nursing home facility was reportedly negative. 9. DVT prophylaxis: SCDs, HUMPHREY rios. 10. Appreciate palliative care assistance. Problem Qualifiers (1) Pneumonia: Qualified Codes: J18.1 - Lobar pneumonia, unspecified organism Ephraim Godinez MD Apr 13, 2017 11:43
[2017-04-13] MEDS: ENOXAPARIN SODIUM 30 MG/0.3 ML SYRINGE SQ SCH (15:15)
[2017-04-13] MEDS: LEVOFLOXACIN 750 MG PREMIX INJ 150 ML IV SCH (15:20)
[2017-04-13] MEDS: SENNOSIDES 8.6 MG TAB PO SCH (21:01)
[2017-04-14] VITALS (11 sets, daily range): BP systolic 109–162; BP diastolic 55–74; PULSE 70–101; RESP 17–23; TEMP 97.2–98.6; O2SAT 93–99
[2017-04-14] MEDS: RESP: ALBUTEROL 2.5 MG/IPRATROPIUM 0.5 MG NEB (SCH) INH ×4 (00:33→11:44)
[2017-04-14] MEDS: AZTREONAM INJ 2,000 MG in SODIUM CHLORIDE 0.9% INJ 100 ML IV SCH ×3 (01:16→16:47)
[2017-04-14] MEDS: LEVOTHYROXINE SODIUM 50 MCG TAB PO SCH (05:29)
[2017-04-14] MEDS: ALPRAZolam 0.5 MG TAB PO PRN ×3 (06:03→20:08)
[2017-04-14] MEDS: D5-1/2 NS + KCL 20 MEQ INJ 1,000 ML IV SCH (06:08)
[2017-04-14 07:22] LABS: AUTOMATED NEUTROPHIL # 7.6 TH/MM3 (1.8-7.7); BASOPHIL % 0.4 % (0.0-2.0); EOSINOPHIL # 0.2 TH/MM3 (0-0.4); EOSINOPHIL % 1.7 % (0.0-4.0); HEMATOCRIT 30.2 % (35.0-46.0); HEMO FLAGS AUTO DIFF; LYMPH % 12.5 % (9.0-44.0); LYMPHOCYTE # 1.3 TH/MM3 (1.0-4.8); MEAN CELL VOLUME 87.1 FL (80.0-100.0); MEAN CORPUSCULAR HEMOGLOBIN 27.6 PG (27.0-34.0); MEAN CORPUSCULAR HGB CONC 31.7 % (32.0-36.0); MONO % 10.2 % (0.0-8.0); NEUT % 75.2 % (16.0-70.0); PLATELET COUNT 299 TH/MM3 (150-450); RED BLOOD COUNT 3.46 MIL/MM3 (4.00-5.30); RED CELL DISTRIBUTION WIDTH 26.4 % (11.6-17.2); WHITE BLOOD COUNT 10.1 TH/MM3 (4.0-11.0)
[2017-04-14 07:40] LABS: ALKALINE PHOSPHATASE 84 U/L (45-117); ALT (GPT) 17 U/L (10-53); ANION GAP 4 MEQ/L (5-15); AST (GOT) 22 U/L (15-37); BICARBONATE 33.7 MEQ/L (21.0-32.0); CHLORIDE 104 MEQ/L (98-107); GLOMERULAR FILTRATION RATE 155 ML/MIN (>89); MAGNESIUM 1.9 MG/DL (1.5-2.5); POTASSIUM 3.7 MEQ/L (3.5-5.1); SODIUM (NA) 142 MEQ/L (136-145); TOTAL BILIRUBIN ADULT 0.3 MG/DL (0.2-1.0)
[2017-04-14 07:42] LABS: BLOOD UREA NITROGEN 13 MG/DL (7-18)
[2017-04-14 08:02] LABS: BANDS 11 % (0-6); MYELOCYTES 1 % (0-0); NEUTROPHIL # MANUAL DIFF 7.9 TH/MM3 (1.8-7.7); POLYS (SEG NEUTROPHILS) 66 % (16-70); WBC DIFF SAMPLE 100
[2017-04-14 08:03] LABS: OVALOCYTES 1+ (NORMAL); PLATELET ESTIMATE SMEAR NORMAL (NORMAL); PLATELET MORPHOLOGY ENLARGED (NORMAL); SCAN/DIFF FINAL DIFF MANUAL
[2017-04-14] MEDS: ASPIRIN 325 MG TAB PO SCH (08:47)
[2017-04-14] MEDS: predniSONE 10 MG TAB PO SCH (08:48)
[2017-04-14] MEDS: PARoxetine HCL 20 MG TAB PO SCH (08:48)
[2017-04-14] MEDS: GABAPENTIN 250 MG/5 ML UDC PO SCH ×2 (08:48→20:08)
[2017-04-14] MEDS: ACETAMINOPHEN/HYDROcodone 325 MG/5 MG TAB PO PRN (08:54)
--- NOTE | 2017-04-14 12:22 | HHI.PR ---
Subjective Remarks Follow-up sepsis/HCAP 04/14/17-patient seen and examined, pleasantly confused and states she would like to see her son Edd. Afebrile. Per nurse report, no acute event overnight Objective Vitals Vital Signs Date Time Temp Pulse Resp B/P (MAP) Pulse Ox O2 Delivery O2 Flow Rate FiO2 04/14/17 09:12 Nasal Cannula 4.00 04/14/17 08:01 95 04/14/17 08:00 97.2 101 20 162/69 (100) 93 04/14/17 07:58 94 2.00 04/14/17 04:00 98.6 84 23 151/65 (93) 93 04/14/17 00:34 99 Nasal Cannula 3.00 04/14/17 00:00 98.6 92 20 148/74 (98) 93 04/13/17 20:59 96 04/13/17 20:30 Nasal Cannula 4.00 04/13/17 20:00 98.0 97 22 156/65 (95) 94 04/13/17 16:01 98 Nasal Cannula 4.00 04/13/17 16:00 97.0 90 20 146/60 (88) 92 I/O 04/13/17 04/13/17 04/13/17 04/14/17 04/14/17 04/14/17 07:00 15:00 23:00 07:00 15:00 23:00 Intake Total 1130 ml 100 ml 480 ml 823 ml 100 ml Output Total 550 ml Balance 1130 ml 100 ml 480 ml 273 ml 100 ml Intake Oral 525 ml 480 ml 240 ml IV Total 605 ml 100 ml 583 ml 100 ml Output Urine Total 550 ml # Voids 1 3 # Bowel Movements 0 2 2 Result Diagram: 04/14/17 0531 04/14/17 0531 Imaging Last Impressions Chest X-Ray 04/10/17 0000 Signed Impressions: Service Date/Time: Monday, April 10, 2017 04:02 - CONCLUSION: Acute pneumonia possible of the right lung base in the proper clinical setting. Otherwise mainly chronic appearing bilateral interstitial disease with right-sided volume loss. Corby Villarreal MD Objective Remarks GENERAL: NAD and sitting by the nursing station SKIN: Warm and dry. HEAD: Normocephalic. EYES: No scleral icterus. No injection or drainage. NECK: Supple, trachea midline. No JVD or lymphadenopathy. CARDIOVASCULAR: Regular rate and rhythm without murmurs, gallops, or rubs. RESPIRATORY: Breath sounds decrease bilaterally. No accessory muscle use. GASTROINTESTINAL: Abdomen soft, non-tender, nondistended. MUSCULOSKELETAL: No cyanosis, or edema. BACK: Nontender without obvious deformity. No CVA tenderness. Procedures None A/P Problem List: (1) HCAP (healthcare-associated pneumonia) ICD Code: J18.9 - Pneumonia, unspecified organism (2) COPD (chronic obstructive pulmonary disease) ICD Code: J44.9 - Chronic obstructive pulmonary disease, unspecified (3) Tobacco abuse ICD Code: Z72.0 - Tobacco use (4) Hypothyroidism ICD Code: E03.9 - Hypothyroidism, unspecified (5) Dehydration, mild ICD Code: E86.0 - Dehydration Status: Acute (6) Metabolic encephalopathy ICD Code: G93.41 - Metabolic encephalopathy (7) Sepsis ICD Code: A41.9 - Sepsis, unspecified organism Assessment and Plan 86-year-old female with 1. Sepsis secondary to healthcare associated pneumonia: Currently on Azactam and Levaquin IV. Blood cultures NTD. Continue supplemental oxygen. Scheduled DuoNeb. 2. Metabolic Encephalopathy: Improving, continue treatment for HCAP 3. End-stage COPD with ongoing tobacco abuse: Patient had been under hospice care, but this was revoked prior to admission. Hospice consult pending. Continue duo nebs, supplemental oxygen, prednisone. 4. Hypothyroidism: Continue Synthroid. 5. Chronic anemia: H&H stable 6. Postherpetic neuralgia: Continue gabapentin. 7. Recurrent falls: Fall precautions, PT to treat and eval 8. Left hip pain status post recent fall: X-ray at the correction facility was reportedly negative. 9. DVT prophylaxis: HUMPHREY Sanchez. Jeffrey Mancuso MD Apr 14, 2017 12:22
[2017-04-14] MEDS ORDERED: RESP: ALBUTEROL 2.5 MG/IPRATROPIUM 0.5 MG NEB (PRN) NEB (14:00)
[2017-04-14] MEDS: LEVOFLOXACIN 750 MG PREMIX INJ 150 ML IV SCH (15:08)
[2017-04-14] MEDS: ENOXAPARIN SODIUM 30 MG/0.3 ML SYRINGE SQ SCH (15:09)
[2017-04-14] MEDS ORDERED: RESP: ALBUTEROL 2.5 MG/IPRATROPIUM 0.5 MG NEB (SCH) INH (16:00)
[2017-04-14] MEDS: SENNOSIDES 8.6 MG TAB PO SCH (20:08)
[2017-04-15] VITALS (9 sets, daily range): BP systolic 115–168; BP diastolic 56–71; PULSE 71–105; RESP 17–20; TEMP 97.3–97.8; O2SAT 90–100
[2017-04-15] MEDS: AZTREONAM INJ 2,000 MG in SODIUM CHLORIDE 0.9% INJ 100 ML IV SCH ×3 (00:53→18:26)
[2017-04-15] MEDS: LEVOTHYROXINE SODIUM 50 MCG TAB PO SCH (05:25)
[2017-04-15] MEDS: ALPRAZolam 0.5 MG TAB PO PRN ×2 (06:04→21:56)
[2017-04-15] MEDS: PARoxetine HCL 20 MG TAB PO SCH (09:34)
[2017-04-15] MEDS: ASPIRIN 325 MG TAB PO SCH (09:34)
[2017-04-15] MEDS: predniSONE 10 MG TAB PO SCH (09:34)
[2017-04-15] MEDS: GABAPENTIN 250 MG/5 ML UDC PO SCH ×2 (09:34→21:58)
--- NOTE | 2017-04-15 13:45 | HHI.PR ---
Subjective Remarks Follow-up sepsis/HCAP 04/14/17-patient seen and examined, pleasantly confused and states she would like to see her son Edd. Afebrile. Per nurse report, no acute event overnight 04/15/17-patient seen and examined, she was sitting at nursing's station and feeding herself. Vitals stable Objective Vitals Vital Signs Date Time Temp Pulse Resp B/P (MAP) Pulse Ox O2 Delivery O2 Flow Rate FiO2 04/15/17 12:00 90 4.00 04/15/17 12:00 97.8 105 18 127/69 (88) 93 04/15/17 09:46 98 Nasal Cannula 2.00 04/15/17 08:12 80 04/15/17 08:00 98 Nasal Cannula 4.00 04/15/17 08:00 97.4 86 20 139/66 (90) 96 04/15/17 04:00 97.6 91 17 133/63 (86) 94 04/15/17 00:00 97.3 73 19 115/56 (75) 100 04/14/17 20:00 97.4 78 17 121/60 (80) 93 04/14/17 19:59 77 04/14/17 19:30 Nasal Cannula 4.00 04/14/17 18:11 98 Nasal Cannula 2.00 04/14/17 16:00 97.2 70 18 109/55 (73) 98 I/O 04/14/17 04/14/17 04/14/17 04/15/17 04/15/17 04/15/17 06:59 14:59 22:59 06:59 14:59 22:59 Intake Total 823 ml 326 ml 510 ml 340 ml Output Total 550 ml 650 ml Balance 273 ml 326 ml 510 ml -310 ml Intake Oral 240 ml 360 ml 240 ml IV Total 583 ml 326 ml 150 ml 100 ml Output Urine Total 550 ml 650 ml # Voids 3 # Bowel Movements 2 2 4 Result Diagram: 04/14/1753004/14/17530 Objective Remarks GENERAL: NAD and sitting by the nursing station SKIN: Warm and dry. HEAD: Normocephalic. EYES: No scleral icterus. No injection or drainage. NECK: Supple, trachea midline. No JVD or lymphadenopathy. CARDIOVASCULAR: Regular rate and rhythm without murmurs, gallops, or rubs. RESPIRATORY: Breath sounds decrease bilaterally. No accessory muscle use. GASTROINTESTINAL: Abdomen soft, non-tender, nondistended. MUSCULOSKELETAL: No cyanosis, or edema. BACK: Nontender without obvious deformity. No CVA tenderness. Procedures None A/P Problem List: (1) HCAP (healthcare-associated pneumonia) ICD Code: J18.9 - Pneumonia, unspecified organism (2) COPD (chronic obstructive pulmonary disease) ICD Code: J44.9 - Chronic obstructive pulmonary disease, unspecified (3) Tobacco abuse ICD Code: Z72.0 - Tobacco use (4) Hypothyroidism ICD Code: E03.9 - Hypothyroidism, unspecified (5) Dehydration, mild ICD Code: E86.0 - Dehydration Status: Acute (6) Metabolic encephalopathy ICD Code: G93.41 - Metabolic encephalopathy (7) Sepsis ICD Code: A41.9 - Sepsis, unspecified organism Assessment and Plan 86-year-old female with 1. Sepsis secondary to healthcare associated pneumonia: Continue Azactam and Levaquin IV. Blood cultures NTD. Continue supplemental oxygen. Scheduled DuoNeb. 2. Metabolic Encephalopathy: Improved, continue treatment for HCAP 3. End-stage COPD with ongoing tobacco abuse: Patient had been under hospice care, but this was revoked prior to admission. Hospice consult pending. Continue duo nebs, supplemental oxygen, prednisone. 4. Hypothyroidism: Continue Synthroid. 5. Chronic anemia: H&H stable 6. Postherpetic neuralgia: Continue gabapentin. 7. Recurrent falls: Fall precautions, PT to treat and eval 8. Left hip pain status post recent fall: X-ray at the snf facility was reportedly negative. 9. DVT prophylaxis: HUMPHREY Sanchez. Jeffrey Mancuso MD Apr 15, 2017 13:45
[2017-04-15] MEDS: LEVOFLOXACIN 750 MG PREMIX INJ 150 ML IV SCH (16:28)
[2017-04-15] MEDS: ENOXAPARIN SODIUM 30 MG/0.3 ML SYRINGE SQ SCH (16:28)
[2017-04-15] MEDS: SENNOSIDES 8.6 MG TAB PO SCH (21:57)
[2017-04-16] VITALS (7 sets, daily range): BP systolic 100–164; BP diastolic 54–73; PULSE 72–86; RESP 18–20; TEMP 97.6–98; O2SAT 91–98
[2017-04-16] MEDS: AZTREONAM INJ 2,000 MG in SODIUM CHLORIDE 0.9% INJ 100 ML IV SCH ×3 (01:00→15:40)
[2017-04-16] MEDS: LEVOTHYROXINE SODIUM 50 MCG TAB PO SCH (05:58)
[2017-04-16] MEDS: ALPRAZolam 0.5 MG TAB PO PRN ×2 (05:58→22:24)
[2017-04-16] MEDS: predniSONE 10 MG TAB PO SCH (09:18)
[2017-04-16] MEDS: ASPIRIN 325 MG TAB PO SCH (09:19)
[2017-04-16] MEDS: GABAPENTIN 250 MG/5 ML UDC PO SCH ×2 (09:19→21:37)
[2017-04-16] MEDS: PARoxetine HCL 20 MG TAB PO SCH (09:19)
--- NOTE | 2017-04-16 12:30 | HHI.PR ---
Subjective Remarks Follow-up sepsis/HCAP 04/14/17-patient seen and examined, pleasantly confused and states she would like to see her son Edd. Afebrile. Per nurse report, no acute event overnight 04/15/17-patient seen and examined, she was sitting at nursing's station and feeding herself. Vitals stable 04/16/17-patient seen and examined, pleasantly confused and states she is tired of staying in bed. She states she would like to get up and walk otherwise she will leave this hospital if she is not allowed. Vitals stable Objective Vitals Vital Signs Date Time Temp Pulse Resp B/P (MAP) Pulse Ox O2 Delivery O2 Flow Rate FiO2 04/16/17 08:00 Nasal Cannula 2.00 04/16/17 08:00 97.7 86 20 140/73 (95) 93 04/16/17 04:00 97.8 74 18 101/61 (74) 98 04/16/17 00:00 97.6 81 18 100/54 (69) 98 04/15/17 22:13 78 04/15/17 20:00 97.6 71 18 159/65 (96) 99 04/15/17 19:51 Nasal Cannula 4.00 04/15/17 16:00 97.4 86 20 168/71 (103) 90 04/15/17 16:00 90 4.00 I/O 04/15/17 04/15/17 04/15/17 04/16/17 04/16/17 04/16/17 07:00 15:00 23:00 07:00 15:00 23:00 Intake Total 340 ml 390 ml 340 ml Output Total 650 ml Balance -310 ml 390 ml 340 ml Intake Oral 240 ml 240 ml 240 ml IV Total 100 ml 150 ml 100 ml Output Urine Total 650 ml # Voids 2 4 # Bowel Movements 4 1 Result Diagram: 04/14/17 0531 04/14/17 0531 Imaging Last Impressions Chest X-Ray 04/10/17 0000 Signed Impressions: Service Date/Time: Monday, April 10, 2017 04:02 - CONCLUSION: Acute pneumonia possible of the right lung base in the proper clinical setting. Otherwise mainly chronic appearing bilateral interstitial disease with right-sided volume loss. Croby Villarreal MD Objective Remarks GENERAL: NAD SKIN: Warm and dry. HEAD: Normocephalic. EYES: No scleral icterus. No injection or drainage. NECK: Supple, trachea midline. No JVD or lymphadenopathy. CARDIOVASCULAR: Regular rate and rhythm without murmurs, gallops, or rubs. RESPIRATORY: Breath sounds decrease bilaterally. No accessory muscle use. GASTROINTESTINAL: Abdomen soft, non-tender, nondistended. MUSCULOSKELETAL: No cyanosis, or edema. BACK: Nontender without obvious deformity. No CVA tenderness. Procedures None A/P Problem List: (1) HCAP (healthcare-associated pneumonia) ICD Code: J18.9 - Pneumonia, unspecified organism (2) COPD (chronic obstructive pulmonary disease) ICD Code: J44.9 - Chronic obstructive pulmonary disease, unspecified (3) Tobacco abuse ICD Code: Z72.0 - Tobacco use (4) Hypothyroidism ICD Code: E03.9 - Hypothyroidism, unspecified (5) Dehydration, mild ICD Code: E86.0 - Dehydration Status: Acute (6) Metabolic encephalopathy ICD Code: G93.41 - Metabolic encephalopathy (7) Sepsis ICD Code: A41.9 - Sepsis, unspecified organism Assessment and Plan 86-year-old female with 1. Sepsis secondary to healthcare associated pneumonia: Continue Azactam and Levaquin IV. Blood cultures remain NTD. Continue supplemental oxygen. Scheduled DuoNeb. 2. Metabolic Encephalopathy: Improved, continue treatment for HCAP 3. End-stage COPD with ongoing tobacco abuse: Patient had been under hospice care, but this was revoked prior to admission. Hospice consult pending. Continue duo nebs, supplemental oxygen, prednisone. 4. Hypothyroidism: Continue Synthroid. 5. Chronic anemia: H&H stable 6. Postherpetic neuralgia: Continue gabapentin. 7. Recurrent falls: Fall precautions, PT to treat and eval 8. Left hip pain status post recent fall: [facility] was [facility]. Continue with PT, Tylenol when necessary for pain 9. DVT prophylaxis: HUMPHREY Sanchez. Jeffrey Mancuso MD Apr 16, 2017 12:30
[2017-04-16] MEDS: ENOXAPARIN SODIUM 30 MG/0.3 ML SYRINGE SQ SCH (15:34)
[2017-04-16] MEDS: LEVOFLOXACIN 750 MG PREMIX INJ 150 ML IV SCH (15:35)
[2017-04-16] MEDS: SENNOSIDES 8.6 MG TAB PO SCH (21:37)
[2017-04-16] MEDS: ACETAMINOPHEN/HYDROcodone 325 MG/5 MG TAB PO PRN (21:38)
[2017-04-17] VITALS (8 sets, daily range): BP systolic 117–153; BP diastolic 55–82; PULSE 64–80; RESP 18–20; TEMP 97.3–98.4; O2SAT 94–99
[2017-04-17] MEDS: AZTREONAM INJ 2,000 MG in SODIUM CHLORIDE 0.9% INJ 100 ML IV SCH ×3 (01:13→17:24)
[2017-04-17] MEDS: ALPRAZolam 0.5 MG TAB PO PRN ×3 (03:53→17:24)
[2017-04-17] MEDS: LEVOTHYROXINE SODIUM 50 MCG TAB PO SCH (05:22)
[2017-04-17 08:59] LABS: AUTOMATED NEUTROPHIL # 5.1 TH/MM3 (1.8-7.7); BASOPHIL % 0.4 % (0.0-2.0); EOSINOPHIL # 0.1 TH/MM3 (0-0.4); EOSINOPHIL % 1.4 % (0.0-4.0); HEMATOCRIT 26.4 % (35.0-46.0); LYMPH % 11.1 % (9.0-44.0); LYMPHOCYTE # 0.7 TH/MM3 (1.0-4.8); MEAN CELL VOLUME 88.6 FL (80.0-100.0); MEAN CORPUSCULAR HEMOGLOBIN 28.4 PG (27.0-34.0); MONO % 9.9 % (0.0-8.0); NEUT % 77.2 % (16.0-70.0); PLATELET COUNT 285 TH/MM3 (150-450); RED BLOOD COUNT 2.98 MIL/MM3 (4.00-5.30); RED CELL DISTRIBUTION WIDTH 26.5 % (11.6-17.2); WHITE BLOOD COUNT 6.6 TH/MM3 (4.0-11.0)
[2017-04-17 09:04] LABS: HEMO FLAGS AUTO DIFF
[2017-04-17 09:12] LABS: POTASSIUM 3.1 MEQ/L (3.5-5.1)
[2017-04-17] MEDS: PARoxetine HCL 20 MG TAB PO SCH (09:17)
[2017-04-17] MEDS: GABAPENTIN 250 MG/5 ML UDC PO SCH ×2 (09:17→20:08)
[2017-04-17] MEDS: ASPIRIN 325 MG TAB PO SCH (09:17)
[2017-04-17] MEDS: predniSONE 10 MG TAB PO SCH (09:18)
[2017-04-17 09:47] LABS: SCAN/DIFF AUTO DIFF CONFIRMED
--- NOTE | 2017-04-17 12:39 | HHI.PR ---
Subjective Remarks Follow-up sepsis/HCAP 04/14/17-patient seen and examined, pleasantly confused and states she would like to see her son Edd. Afebrile. Per nurse report, no acute event overnight 04/15/17-patient seen and examined, she was sitting at nursing's station and feeding herself. Vitals stable 04/16/17-patient seen and examined, pleasantly confused and states she is tired of staying in bed. She states she would like to get up and walk otherwise she will leave this hospital if she is not allowed. Vitals stable 04/17/17-patient seen and examined, resting and no acute event overnight. Objective Vitals Vital Signs Date Time Temp Pulse Resp B/P (MAP) Pulse Ox O2 Delivery O2 Flow Rate FiO2 04/17/17 09:20 97 Nasal Cannula 3.00 04/17/17 08:00 98.0 73 18 128/62 (84) 97 04/17/17 07:47 94 2.00 04/17/17 04:00 Nasal Cannula 3.00 04/17/17 03:29 97.7 76 18 153/65 (94) 96 04/17/17 01:12 97.7 75 18 143/63 (89) 97 04/17/17 00:00 Nasal Cannula 3.00 04/16/17 21:30 Nasal Cannula 3.00 04/16/17 20:00 72 04/16/17 19:26 97.8 76 18 143/69 (93) 98 04/16/17 16:00 98.0 85 20 164/71 (102) 98 I/O 04/16/17 04/16/17 04/16/17 04/17/17 04/17/17 04/17/17 07:00 15:00 23:00 07:00 15:00 23:00 Intake Total 340 ml 480 ml 340 ml 100 ml Output Total 800 ml 175 ml Balance 340 ml 480 ml -460 ml -75 ml Intake Oral 240 ml 480 ml 240 ml IV Total 100 ml 100 ml 100 ml Output Urine Total 800 ml 175 ml # Voids 4 3 6 1 # Bowel Movements 2 Result Diagram: 04/17/17 0735 04/17/17 0735 Imaging Last Impressions Chest X-Ray 04/10/17 0000 Signed Impressions: Service Date/Time: Monday, April 10, 2017 04:02 - CONCLUSION: Acute pneumonia possible of the right lung base in the proper clinical setting. Otherwise mainly chronic appearing bilateral interstitial disease with right-sided volume loss. Corby Villarreal MD Objective Remarks GENERAL: NAD SKIN: Warm and dry. HEAD: Normocephalic. EYES: No scleral icterus. No injection or drainage. NECK: Supple, trachea midline. No JVD or lymphadenopathy. CARDIOVASCULAR: Regular rate and rhythm without murmurs, gallops, or rubs. RESPIRATORY: Breath sounds decrease bilaterally. No accessory muscle use. GASTROINTESTINAL: Abdomen soft, non-tender, nondistended. MUSCULOSKELETAL: No cyanosis, or edema. BACK: Nontender without obvious deformity. No CVA tenderness. Procedures None A/P Problem List: (1) HCAP (healthcare-associated pneumonia) ICD Code: J18.9 - Pneumonia, unspecified organism (2) COPD (chronic obstructive pulmonary disease) ICD Code: J44.9 - Chronic obstructive pulmonary disease, unspecified (3) Tobacco abuse ICD Code: Z72.0 - Tobacco use (4) Hypothyroidism ICD Code: E03.9 - Hypothyroidism, unspecified (5) Dehydration, mild ICD Code: E86.0 - Dehydration Status: Acute (6) Metabolic encephalopathy ICD Code: G93.41 - Metabolic encephalopathy (7) Sepsis ICD Code: A41.9 - Sepsis, unspecified organism Assessment and Plan 86-year-old female with 1. Sepsis secondary to healthcare associated pneumonia: Continue Azactam and Levaquin IV. Continue supplemental oxygen. Scheduled DuoNeb. 2. Metabolic Encephalopathy: Improved, continue treatment for HCAP 3. End-stage COPD with ongoing tobacco abuse: Patient had been under hospice care, but this was revoked prior to admission. Hospice consult pending. Continue duo nebs, supplemental oxygen, prednisone. 4. Hypothyroidism: Continue Synthroid. 5. Chronic anemia: H&H stable 6. Postherpetic neuralgia: Continue gabapentin. 7. Recurrent falls: Fall precautions, PT to treat and eval 8. Left hip pain status post recent fall: X-ray at the care home facility was reportedly negative. Continue with PT, Tylenol when necessary for pain 9. DVT prophylaxis: JIMMYs, HUMPHREY rios. Jeffrey Mancuso MD Apr 17, 2017 12:39
[2017-04-17] MEDS: ENOXAPARIN SODIUM 30 MG/0.3 ML SYRINGE SQ SCH (15:14)
[2017-04-17] MEDS: LEVOFLOXACIN 750 MG PREMIX INJ 150 ML IV SCH (15:14)
[2017-04-17] MEDS: ACETAMINOPHEN/HYDROcodone 325 MG/5 MG TAB PO PRN (16:21)
[2017-04-17] MEDS: SENNOSIDES 8.6 MG TAB PO SCH (20:08)
[2017-04-18] VITALS (8 sets, daily range): BP systolic 112–154; BP diastolic 53–66; PULSE 60–85; RESP 18–22; TEMP 97.1–98; O2SAT 92–100
[2017-04-18] MEDS: AZTREONAM INJ 2,000 MG in SODIUM CHLORIDE 0.9% INJ 100 ML IV SCH ×3 (00:10→16:40)
[2017-04-18] MEDS: LEVOTHYROXINE SODIUM 50 MCG TAB PO SCH (05:27)
[2017-04-18] MEDS: ALPRAZolam 0.5 MG TAB PO PRN ×3 (05:29→21:38)
[2017-04-18] MEDS: PARoxetine HCL 20 MG TAB PO SCH (09:44)
[2017-04-18] MEDS: ASPIRIN 325 MG TAB PO SCH (09:44)
[2017-04-18] MEDS: predniSONE 10 MG TAB PO SCH (09:44)
[2017-04-18] MEDS: GABAPENTIN 250 MG/5 ML UDC PO SCH ×3 (09:45→21:41)
--- NOTE | 2017-04-18 12:17 | HHI.PR ---
Subjective Remarks Follow-up sepsis/HCAP 04/14/17-patient seen and examined, pleasantly confused and states she would like to see her son Edd. Afebrile. Per nurse report, no acute event overnight 04/15/17-patient seen and examined, she was sitting at nursing's station and feeding herself. Vitals stable 04/16/17-patient seen and examined, pleasantly confused and states she is tired of staying in bed. She states she would like to get up and walk otherwise she will leave this hospital if she is not allowed. Vitals stable 04/17/17-patient seen and examined, resting and no acute event overnight. 04/18/17-patient seen and examined, pleasantly confused however asking when can she be discharged home. Currently afebrile. Objective Vitals Vital Signs Date Time Temp Pulse Resp B/P (MAP) Pulse Ox O2 Delivery O2 Flow Rate FiO2 04/18/17 08:00 97.6 85 18 149/62 (91) 92 04/18/17 04:00 97.2 84 18 139/62 (87) 93 04/18/17 00:00 97.1 73 18 112/55 (74) 93 04/17/17 20:00 97.3 73 18 121/55 (77) 99 04/17/17 20:00 64 04/17/17 19:45 Nasal Cannula 3.00 04/17/17 17:23 20 04/17/17 16:00 98.4 80 20 153/82 (105) 97 I/O 04/17/17 04/17/17 04/17/17 04/18/17 04/18/17 04/18/17 07:00 15:00 23:00 07:00 15:00 23:00 Intake Total 340 ml 460 ml 150 ml 105 ml Output Total 800 ml 175 ml Balance -460 ml 285 ml 150 ml 105 ml Intake Oral 240 ml 360 ml IV Total 100 ml 100 ml 150 ml 105 ml Output Urine Total 800 ml 175 ml # Voids 6 4 11 # Bowel Movements 2 Result Diagram: 04/17/1773404/17/17734 Objective Remarks GENERAL: NAD SKIN: Warm and dry. HEAD: Normocephalic. EYES: No scleral icterus. No injection or drainage. NECK: Supple, trachea midline. No JVD or lymphadenopathy. CARDIOVASCULAR: Regular rate and rhythm without murmurs, gallops, or rubs. RESPIRATORY: Breath sounds decrease bilaterally. No accessory muscle use. GASTROINTESTINAL: Abdomen soft, non-tender, nondistended. MUSCULOSKELETAL: No cyanosis, or edema. BACK: Nontender without obvious deformity. No CVA tenderness. Procedures None A/P Problem List: (1) HCAP (healthcare-associated pneumonia) ICD Code: J18.9 - Pneumonia, unspecified organism (2) COPD (chronic obstructive pulmonary disease) ICD Code: J44.9 - Chronic obstructive pulmonary disease, unspecified (3) Tobacco abuse ICD Code: Z72.0 - Tobacco use (4) Hypothyroidism ICD Code: E03.9 - Hypothyroidism, unspecified (5) Dehydration, mild ICD Code: E86.0 - Dehydration Status: Acute (6) Metabolic encephalopathy ICD Code: G93.41 - Metabolic encephalopathy (7) Sepsis ICD Code: A41.9 - Sepsis, unspecified organism Assessment and Plan 86-year-old female with 1. Sepsis secondary to healthcare associated pneumonia: Continue Azactam and Levaquin IV and monitor for sign of infections. Continue supplemental oxygen. Scheduled DuoNeb. 2. Metabolic Encephalopathy: Improved, continue treatment for HCAP 3. End-stage COPD with ongoing tobacco abuse: Patient had been under hospice care, but this was revoked prior to admission. Hospice consult pending. Continue duo nebs, supplemental oxygen, prednisone. 4. Hypothyroidism: Continue Synthroid. 5. Chronic anemia: H&H stable 6. Postherpetic neuralgia: Continue gabapentin. 7. Recurrent falls: Fall precautions, PT to treat and eval 8. Left hip pain status post recent fall: [facility]. Continue with PT, Tylenol when necessary for pain 9. DVT prophylaxis: HUMPHREY Sanchez. Jeffrey Mancuso MD Apr 18, 2017 12:17
[2017-04-18] MEDS: ENOXAPARIN SODIUM 30 MG/0.3 ML SYRINGE SQ SCH (15:42)
--- NOTE | 2017-04-18 15:45 | HHI.HCPN ---
Reason for visit a. To assist with evaluation and management of symptoms including: Agitation , confusion, dyspnea, pain b. To assist medical decision maker(s) with: better understanding of current medical conditions; weighing benefits/burdens of medical treatment options; making medical treatment decisions. . Subjective/Interval History This is an 86-year-old female that was brought to the emergency department from [facility] by her daughter as the daughter had decided to rescind hospice and try aggressive treatment for her mother. She was admitted to hospice for end-stage COPD and diastolic heart failure. She has chronic anemia and had a recent fall which showed no fracture by x-ray. Patient was admitted to the [facility] for pain and agitation not able to be controlled in her previous setting. On evaluation in the ED physician reports the patient was drowsy but awakens to name and doses back off to sleep. She was in no acute respiratory distress. At the daughter's request all narcotics were held. Her last administration of Ativan or morphine was at 16:40 5 PM on 04/09/17. During the ED evaluation the daughter then demanded to have the patient return to inpatient hospice care to continue her on her antibiotic with IV fluids. Arrangements were in process to have that transfer effected when the daughter again changed her mind and requested that the patient be admitted to [facility] as an inpatient. Interim history * Laboratory - WBC 15.3, hemoglobin 9.1, hematocrit 30.1, platelets 351, sodium 137, potassium 6.0, BUN 23, creatinine 0.63. * Physical therapy assessment indicates patient is at high risk for skin breakdown and contractures due to immobility and pain and is at high risk for falls due to compromised balance, altered mental status and altered gait. Rehabilitation potential is good for stated goals of min to mod assist for supine to sit transfers, able to sit unsupported at edge of bed for 30 seconds, min to mod assist for bed to chair transfers. She is much more alert and speech is fairly clear at this evaluation. She is smiling, thanking me for attention, knows that Harsha and Luke are her sons, Josey is her daughter. When asked about rehabilitation she said she would be in favor of that. . Family/friend interactions 14:30 - spoke with brother Nael Jamil regarding placement options and discharge concerns. Per that discussion there is concern that without adequate rehabilitation, patient would be unsafe at home as daughter has to many health issues of her own to be able to care for her mother. At this time she has been refused by grand Cheng and Kevin Nuñez. Further alf referrals are still pending. He had previously stated a desire to move his mother to [place] where there is more family to assist in her care and provide support. He feels that this will not be acceptable to his sister as she lives with her mother and support for the home is provided in part by the mother social security pension. He will try to contact his sister to set up a discussion between and , at which time alf referrals should have been answered so further plans can be made. 15:00 - spoke with sister Josey who states that she will be coming to the hospital after she takes her shower. She has not in the past attended any of her promised appointments either with myself, hospice or with case management. She is convinced that she can bring her mother home after short-term rehabilitation and be able to care for her there. She would not accept the possibility of her mother going to long-term care. She deferred the remainder of the conversation until our scheduled [id number] meeting today. . Advance Directives Living Will: Never completed Health Care Surrogate: Never completed Durable Power of Lab Aide: Never completed Objective Vital Signs Date Time Temp Pulse Resp B/P (MAP) Pulse Ox O2 Delivery O2 Flow Rate FiO2 04/18/17 12:00 97.4 60 20 154/63 (93) 93 04/18/17 08:01 Nasal Cannula 3.00 04/18/17 08:00 97.6 85 18 149/62 (91) 92 04/18/17 04:00 97.2 84 18 139/62 (87) 93 04/18/17 00:00 97.1 73 18 112/55 (74) 93 04/17/17 20:00 97.3 73 18 121/55 (77) 99 04/17/17 20:00 64 04/17/17 19:45 Nasal Cannula 3.00 04/17/17 17:23 20 04/17/17 16:00 98.4 80 20 153/82 (105) 97 Intake & Output 04/18/17 04/18/17 07:00 19:00 Intake Total 105 ml Balance 105 ml IV Total 105 ml # Voids 11 # Bowel Movements 2 Physical Exam CONSTITUTIONAL/GENERAL: This is a thin, elderly, female in no acute distress. TUBES/LINES/DRAINS: Right forearm PIV CARDIOVASCULAR: Regular rate and rhythm without murmurs, gallops, or rubs. No JVD. Peripheral pulses symmetric. RESPIRATORY/CHEST: Lungs sounds diminished with scattered rhonchi and wheezes. GASTROINTESTINAL: Abdomen soft, non-tender, nondistended. No hepato-splenomegaly , or palpable masses. No guarding. Bowel sounds present. GENITOURINARY: Without palpable bladder distension. MUSCULOSKELETAL: Extremities without clubbing, cyanosis, or edema. Generalized weakness. NEUROLOGICAL: Awake, responding appropriately, verbalizes recognition of her children names. PSYCHIATRIC: Calm, cooperative, pleasant. . Diagnostic Tests Laboratory Laboratory Tests Test 04/17/17 07:35 White Blood Count 6.6 TH/MM3 (4.0-11.0) Red Blood Count 2.98 MIL/MM3 (4.00-5.30) Hemoglobin 8.5 GM/DL (11.6-15.3) Hematocrit 26.4 % (35.0-46.0) Mean Corpuscular Volume 88.6 FL (80.0-100.0) Mean Corpuscular Hemoglobin 28.4 PG (27.0-34.0) Mean Corpuscular Hemoglobin Concent 32.0 % (32.0-36.0) Red Cell Distribution Width 26.5 % (11.6-17.2) Platelet Count 285 TH/MM3 (150-450) Mean Platelet Volume 6.4 FL (7.0-11.0) Neutrophils (%) (Auto) 77.2 % (16.0-70.0) Lymphocytes (%) (Auto) 11.1 % (9.0-44.0) Monocytes (%) (Auto) 9.9 % (0.0-8.0) Eosinophils (%) (Auto) 1.4 % (0.0-4.0) Basophils (%) (Auto) 0.4 % (0.0-2.0) Neutrophils # (Auto) 5.1 TH/MM3 (1.8-7.7) Lymphocytes # (Auto) 0.7 TH/MM3 (1.0-4.8) Monocytes # (Auto) 0.7 TH/MM3 (0-0.9) Eosinophils # (Auto) 0.1 TH/MM3 (0-0.4) Basophils # (Auto) 0.0 TH/MM3 (0-0.2) CBC Comment AUTO DIFF Differential Comment AUTO DIFF CONFIRMED Blood Urea Nitrogen 13 MG/DL (7-18) Creatinine 0.23 MG/DL (0.50-1.00) Random Glucose 77 MG/DL (74-106) Calcium Level 8.1 MG/DL (8.5-10.1) Sodium Level 141 MEQ/L (136-145) Potassium Level 3.1 MEQ/L (3.5-5.1) Chloride Level 103 MEQ/L (98-107) Carbon Dioxide Level 32.0 MEQ/L (21.0-32.0) Anion Gap 6 MEQ/L (5-15) Estimat Glomerular Filtration Rate 285 ML/MIN (>89) . Result Diagram: 04/17/17 0735 04/17/17 0735 Microbiology Microbiology Date/Time Source Procedure Growth Status 04/10/17 05:40 Blood Peripheral Aerobic Blood Culture - Final NO GROWTH IN 5 DAYS Complete 04/10/17 05:40 Blood Peripheral Anaerobic Blood Culture - Final NO GROWTH IN 5 DAYS Complete Imaging Last Impressions Chest X-Ray 04/10/17 0000 Signed Impressions: Service Date/Time: Monday, April 10, 2017 04:02 - CONCLUSION: Acute pneumonia possible of the right lung base in the proper clinical setting. Otherwise mainly chronic appearing bilateral interstitial disease with right-sided volume loss. Corby Villarreal MD Assessment and Plan Pertinent Non-Medical Issues Psychosocial:Born in [place] she lived there most of her life, marrying and raising her children there. 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 She moved to [place] with her in 1996 after he retired. She was in November 2015. Spiritual:She was raised [employer] but took her children to the [employer]. She has no strong spiritual beliefs. Legal: She has 3 living children who will serve as her joint healthcare proxy. She did not complete a healthcare surrogate form. Ethical issues impacting care: None noted at this time. . Important Contacts Son - Neal Jamil [phone] Son - Luke Silverio [phone] Daughter - Josey Murrieta [phone] Prognosis Her prognosis is poor. In addition to advanced age she has end-stage COPD, complicated by diastolic heart failure, likely aspiration pneumonia, recurrent and failure to thrive. Her appetite is declined she is now pocketing food and at much higher risk for aspiration given her history of epiglottis cancer status post resection. She is now oxygen dependent and continues to smoke. She is at very high risk for recurrent hospitalizations. Code Status: No Code Plan PLAN: Legal decision maker: She has 3 children, Nael Jamil, Josey Murrieta, Luke Silverio who served as joint HCP's. Goals: They wished to attempt one more stay at rehabilitation but remain comfort oriented. CODE STATUS: DNR SYMPTOMS: * Agitation -much improved today. She is calm and pleasant in bed. * Confusion - probably multi-factorial, to include pneumonia, possible sepsis, underlying comorbidities. Narcotics have been minimized and she has received only Xanax in minimal doses due to concerns of polypharmacy. Last dose 0.5 mg at 5:20 9 AM 04/18. She is more oriented today, recognizing her children's names and her grandchildren's names. Her son, Nael, states that she is close to her baseline with some continued speech deficits. Her daughter states that she feels her mother is completely alert and oriented. * Dyspnea - end-stage COPD, chronically oxygen dependent on long-term steroids. On admission she was also found to have right-sided pneumonia, questionably aspiration in origin. Speech therapy recommending pured diet with thin liquids, as patient is edentulous. Speech therapy has signed off. * Pain - [place] 5/325 was ordered as needed for pain. Last dose taken 04/17. Takes approximately 1 pill per day. Summary Of primary concern is placement upon discharge. Family would like to entertain rehabilitation if possible. The son, Nael, appears to have a reasonable grasp of the realities of her condition and her need for care, however, her daughter appears to be unrealistic as to her mother's long-term outlook. Palliative care will continue to follow the patient during hospital course as condition evolves, to assist patient/decision-maker with understanding of their medical conditions, weighing benefits/burdens of treatment options, for clarification of goals of treatment. Additionally will assist with any symptoms of palliative concern Attestation To help prompt me to consider important information that might be impacting today's encounter and assessment, information from prior notes written by myself or my colleagues may have been "brought forward" into today's note. My signature on this note, however, is an attestation that I personally performed the exam, history, and/or decision-making noted today, and, unless otherwise indicated, the interactions with patient, family, and staff as well as the review of records all occurred today. I also attest that the listed assessment and stated plan reflect my best clinical judgment today based on the combination of historical information, prior notes, and today's exam/ interactions. When time spent is documented, it refers only to time spent today by the signer, or if indicated, combined time spent today by collaborating physician/nurse practitioner. Cassie Fatima Apr 18, 2017 3:45 pm
[2017-04-18] MEDS: LEVOFLOXACIN 750 MG PREMIX INJ 150 ML IV SCH (16:40)
[2017-04-18] MEDS: SENNOSIDES 8.6 MG TAB PO SCH (21:38)
[2017-04-19] VITALS: BP 137/63; PULSE 79; RESP 20; TEMP 97.5; O2SAT 98
[2017-04-19 00:17] VITALS: O2SAT 99
[2017-04-19] MEDS: AZTREONAM INJ 2,000 MG in SODIUM CHLORIDE 0.9% INJ 100 ML IV SCH ×2 (00:22→10:23)
[2017-04-19] MEDS: ALPRAZolam 0.5 MG TAB PO PRN ×2 (02:24→06:17)
[2017-04-19 04:00] VITALS: BP 124/49; PULSE 69; RESP 18; TEMP 97.4; O2SAT 95
[2017-04-19] MEDS: LEVOTHYROXINE SODIUM 50 MCG TAB PO SCH (06:17)
[2017-04-19 08:00] VITALS: BP 131/58; PULSE 69; RESP 18; TEMP 97.4; O2SAT 100
[2017-04-19 09:54] VITALS: O2SAT 100
[2017-04-19] MEDS: GABAPENTIN 250 MG/5 ML UDC PO SCH (10:23)
[2017-04-19] MEDS: predniSONE 10 MG TAB PO SCH (10:23)
[2017-04-19] MEDS: PARoxetine HCL 20 MG TAB PO SCH (10:23)
[2017-04-19] MEDS: ASPIRIN 325 MG TAB PO SCH (10:23)
[2017-04-19 12:00] VITALS: BP 134/61; PULSE 81; RESP 20; TEMP 97.6; O2SAT 100
--- NOTE | 2017-04-19 12:45 | HHI.HCPN ---
Reason for visit a. To assist with evaluation and management of symptoms including: confusion, dyspnea, pain b. To assist medical decision maker(s) with: better understanding of current medical conditions; weighing benefits/burdens of medical treatment options; making medical treatment decisions. . Subjective/Interval History 86-year-old female admitted with sepsis and pneumonia, now stabilized from a medical standpoint. She remains somewhat confused and is very weak, requiring assistance to transfer to bedside commode and chair. She had previously been cared for in her home by her daughter who has a number of significant disabilities herself and is unable to provide 24-hour care at this time. After multiple discussions with the family they expressed the wish that she go to rehabilitation one more time to try to regain her strength but have made her a DO NOT RESUSCITATE. Case management after many referrals, has secured placement at either [facility] or [facility]. A family meeting had been planned for to discuss discharge arrangements, however with this new placement, that will be deferred. Patient had previously been enrolled in hospice, however that has been rescinded at this time and patient family goals at this time are not consistent with hospice. . Family/friend interactions Left message on voicemail for son, Nael, who had requested a family meeting by conference call on , to inform him that his mother would be discharged either this afternoon or tomorrow. . Advance Directives Living Will: Never completed Health Care Surrogate: Never completed Durable Power of Automatic Paint Sprayer Operator: Never completed Objective Vital Signs Date Time Temp Pulse Resp B/P (MAP) Pulse Ox O2 Delivery O2 Flow Rate FiO2 04/19/17 09:54 100 Nasal Cannula 3.00 04/19/17 08:00 97.4 69 18 131/58 (82) 100 04/19/17 08:00 Nasal Cannula 3.00 04/19/17 04:00 97.4 69 18 124/49 (74) 95 04/19/17 00:17 99 Nasal Cannula 3.00 04/19/17 00:00 97.5 79 20 137/63 (87) 98 04/18/17 20:33 77 04/18/17 20:30 Nasal Cannula 3.00 04/18/17 20:00 98.0 78 22 112/57 (75) 100 04/18/17 19:00 97.5 76 22 113/53 (73) 100 04/18/17 16:00 97.5 83 20 147/66 (93) 96 Intake & Output 04/19/17 04/19/17 07:00 19:00 Intake Total 100 ml Balance 100 ml IV Total 100 ml # Voids 15 # Bowel Movements 1 Physical Exam CONSTITUTIONAL/GENERAL: This is a thin, elderly, female in no acute distress. Seen with lunch tray in front of her, however not eating. Appears to require assistance or cueing. TUBES/LINES/DRAINS: Right forearm PIV CARDIOVASCULAR: Regular rate and rhythm without murmurs, gallops, or rubs. No JVD. Peripheral pulses symmetric. RESPIRATORY/CHEST: Lungs sounds diminished with scattered rhonchi and wheezes. GASTROINTESTINAL: Abdomen soft, non-tender, nondistended. No hepato-splenomegaly , or palpable masses. No guarding. Bowel sounds present. GENITOURINARY: Without palpable bladder distension. MUSCULOSKELETAL: Extremities without clubbing, cyanosis, or edema. Generalized weakness. NEUROLOGICAL: Awake, responding appropriately, verbalizes recognition of her children names. PSYCHIATRIC: Calm, cooperative, pleasant. . Diagnostic Tests Laboratory Laboratory Tests Test 04/17/17 07:35 White Blood Count 6.6 TH/MM3 (4.0-11.0) Red Blood Count 2.98 MIL/MM3 (4.00-5.30) Hemoglobin 8.5 GM/DL (11.6-15.3) Hematocrit 26.4 % (35.0-46.0) Mean Corpuscular Volume 88.6 FL (80.0-100.0) Mean Corpuscular Hemoglobin 28.4 PG (27.0-34.0) Mean Corpuscular Hemoglobin Concent 32.0 % (32.0-36.0) Red Cell Distribution Width 26.5 % (11.6-17.2) Platelet Count 285 TH/MM3 (150-450) Mean Platelet Volume 6.4 FL (7.0-11.0) Neutrophils (%) (Auto) 77.2 % (16.0-70.0) Lymphocytes (%) (Auto) 11.1 % (9.0-44.0) Monocytes (%) (Auto) 9.9 % (0.0-8.0) Eosinophils (%) (Auto) 1.4 % (0.0-4.0) Basophils (%) (Auto) 0.4 % (0.0-2.0) Neutrophils # (Auto) 5.1 TH/MM3 (1.8-7.7) Lymphocytes # (Auto) 0.7 TH/MM3 (1.0-4.8) Monocytes # (Auto) 0.7 TH/MM3 (0-0.9) Eosinophils # (Auto) 0.1 TH/MM3 (0-0.4) Basophils # (Auto) 0.0 TH/MM3 (0-0.2) CBC Comment AUTO DIFF Differential Comment AUTO DIFF CONFIRMED Blood Urea Nitrogen 13 MG/DL (7-18) Creatinine 0.23 MG/DL (0.50-1.00) Random Glucose 77 MG/DL (74-106) Calcium Level 8.1 MG/DL (8.5-10.1) Sodium Level 141 MEQ/L (136-145) Potassium Level 3.1 MEQ/L (3.5-5.1) Chloride Level 103 MEQ/L (98-107) Carbon Dioxide Level 32.0 MEQ/L (21.0-32.0) Anion Gap 6 MEQ/L (5-15) Estimat Glomerular Filtration Rate 285 ML/MIN (>89) Result Diagram: 04/17/17 0735 04/17/17 0735 Microbiology Microbiology Date/Time Source Procedure Growth Status 04/10/17 05:40 Blood Peripheral Aerobic Blood Culture - Final NO GROWTH IN 5 DAYS Complete 04/10/17 05:40 Blood Peripheral Anaerobic Blood Culture - Final NO GROWTH IN 5 DAYS Complete Imaging Last Impressions Chest X-Ray 04/10/17 0000 Signed Impressions: Service Date/Time: Monday, April 10, 2017 04:02 - CONCLUSION: Acute pneumonia possible of the right lung base in the proper clinical setting. Otherwise mainly chronic appearing bilateral interstitial disease with right-sided volume loss. Corby Villarreal MD Assessment and Plan Disease Oriented Problem List: (1) Pneumonia (2) COPD (chronic obstructive pulmonary disease) (3) Hypothyroidism (4) Tobacco abuse (5) Sepsis (6) Metabolic encephalopathy Symptom Scale: (1) Confusion 0-10 Scale: Unable to quantify (2) Dyspnea and respiratory abnormalities 0-10 Scale: Unable to quantify (3) Pain, generalized 0-10 Scale: Unable to quantify Pertinent Non-Medical Issues Psychosocial:Born in [place] she lived there most of her life, marrying and raising her children there. 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 She moved to [place] with her in 1996 after he retired. She was in November 2015. Spiritual:She was raised Anab[employer]ist but took her children to the [employer]. She has no strong spiritual beliefs. Legal: She has 3 living children who will serve as her joint healthcare proxy. She did not complete a healthcare surrogate form. Ethical issues impacting care: None noted at this time. . Important Contacts Son - Nael Jamil [phone] Son - Luke Silverio [phone] Daughter - Josey Murrieta [phone] Prognosis Her prognosis is poor. In addition to advanced age she has end-stage COPD, complicated by diastolic heart failure, likely aspiration pneumonia, recurrent and failure to thrive. Her appetite is declined she is now pocketing food and at much higher risk for aspiration given her history of epiglottis cancer status post resection. She is now oxygen dependent and continues to smoke. She is at very high risk for recurrent hospitalizations. Code Status: No Code Plan PLAN: Legal decision maker: She has 3 children, Nael Jamil, Josey Murrieta, Luke Silverio who served as joint HCP's. Goals: They wished to attempt one more stay at rehabilitation but remain comfort oriented. CODE STATUS: DNR SYMPTOMS: * Confusion - remains mildly confused, may be underlying dementia. No agitation seen, able to recognize her children. * Dyspnea - end-stage COPD, chronically oxygen dependent on long-term steroids. Now on nasal cannula. Stable for rehabilitation. * Pain - [place] 5/325 was ordered as needed for pain. Last dose taken 04/17. Takes approximately 1 pill per day. Summary Plan for discharge to rehabilitation in the next 24 hours. Family goals are not consistent with hospice at this time. Palliative care will continue to follow the patient during hospital course as condition evolves, to assist patient/decision-maker with understanding of their medical conditions, weighing benefits/burdens of treatment options, for clarification of goals of treatment. Additionally will assist with any symptoms of palliative concern Attestation To help prompt me to consider important information that might be impacting today's encounter and assessment, information from prior notes written by myself or my colleagues may have been "brought forward" into today's note. My signature on this note, however, is an attestation that I personally performed the exam, history, and/or decision-making noted today, and, unless otherwise indicated, the interactions with patient, family, and staff as well as the review of records all occurred today. I also attest that the listed assessment and stated plan reflect my best clinical judgment today based on the combination of historical information, prior notes, and today's exam/ interactions. When time spent is documented, it refers only to time spent today by the signer, or if indicated, combined time spent today by collaborating physician/nurse practitioner. Cassie Fatima Apr 19, 2017 12:45
[2017-04-19] MEDS ORDERED: ALPR0.5T3 PO (13:10)
[2017-04-19] MEDS ORDERED: NORC5TAB PO (13:10)
--- NOTE | 2017-04-19 13:14 | HHI.PR ---
Subjective Remarks Follow-up sepsis/HCAP 04/14/17-patient seen and examined, pleasantly confused and states she would like to see her son Edd. Afebrile. Per nurse report, no acute event overnight 04/15/17-patient seen and examined, she was sitting at nursing's station and feeding herself. Vitals stable 04/16/17-patient seen and examined, pleasantly confused and states she is tired of staying in bed. She states she would like to get up and walk otherwise she will leave this hospital if she is not allowed. Vitals stable 04/17/17-patient seen and examined, resting and no acute event overnight. 04/18/17-patient seen and examined, pleasantly confused however asking when can she be discharged home. Currently afebrile. 04/19/17-patient seen and examined, no acute event overnight, afebrile. Although patient is pleasantly confused, she asked pain today if I was able to speak to her daughter which I told her I would do so yesterday Objective Vitals Vital Signs Date Time Temp Pulse Resp B/P (MAP) Pulse Ox O2 Delivery O2 Flow Rate FiO2 04/19/17 09:54 100 Nasal Cannula 3.00 04/19/17 08:00 97.4 69 18 131/58 (82) 100 04/19/17 08:00 Nasal Cannula 3.00 04/19/17 04:00 97.4 69 18 124/49 (74) 95 04/19/17 00:17 99 Nasal Cannula 3.00 04/19/17 00:00 97.5 79 20 137/63 (87) 98 04/18/17 20:33 77 04/18/17 20:30 Nasal Cannula 3.00 04/18/17 20:00 98.0 78 22 112/57 (75) 100 04/18/17 19:00 97.5 76 22 113/53 (73) 100 04/18/17 16:00 97.5 83 20 147/66 (93) 96 I/O 04/18/17 04/18/17 04/18/17 04/19/17 04/19/17 04/19/17 06:59 14:59 22:59 06:59 14:59 22:59 Intake Total 105 ml 480 ml 100 ml Output Total 600 ml Balance 105 ml -120 ml 100 ml Intake Oral 480 ml IV Total 105 ml 100 ml Output Urine Total 600 ml # Voids 11 15 # Bowel Movements 2 2 1 Result Diagram: 04/17/17 0735 04/17/17 0735 Imaging Last Impressions Chest X-Ray 04/10/17 0000 Signed Impressions: Service Date/Time: Monday, April 10, 2017 04:02 - CONCLUSION: Acute pneumonia possible of the right lung base in the proper clinical setting. Otherwise mainly chronic appearing bilateral interstitial disease with right-sided volume loss. Corby Villarreal MD Objective Remarks GENERAL: NAD SKIN: Warm and dry. HEAD: Normocephalic. EYES: No scleral icterus. No injection or drainage. NECK: Supple, trachea midline. No JVD or lymphadenopathy. CARDIOVASCULAR: Regular rate and rhythm without murmurs, gallops, or rubs. RESPIRATORY: Breath sounds decrease bilaterally. No accessory muscle use. GASTROINTESTINAL: Abdomen soft, non-tender, nondistended. MUSCULOSKELETAL: No cyanosis, or edema. BACK: Nontender without obvious deformity. No CVA tenderness. Procedures None A/P Problem List: (1) HCAP (healthcare-associated pneumonia) ICD Code: J18.9 - Pneumonia, unspecified organism (2) COPD (chronic obstructive pulmonary disease) ICD Code: J44.9 - Chronic obstructive pulmonary disease, unspecified (3) Tobacco abuse ICD Code: Z72.0 - Tobacco use (4) Hypothyroidism ICD Code: E03.9 - Hypothyroidism, unspecified (5) Dehydration, mild ICD Code: E86.0 - Dehydration Status: Acute (6) Metabolic encephalopathy ICD Code: G93.41 - Metabolic encephalopathy (7) Sepsis ICD Code: A41.9 - Sepsis, unspecified organism Assessment and Plan 86-year-old female with 1. Sepsis secondary to healthcare associated pneumonia: Patient to complete Azactam and Levaquin IV today 04/19/17 . Continue supplemental oxygen. Scheduled DuoNeb. 2. Metabolic Encephalopathy: Improved, continue treatment for HCAP 3. End-stage COPD with ongoing tobacco abuse: Continue duo nebs, supplemental oxygen, prednisone. 4. Hypothyroidism: Continue Synthroid. 5. Chronic anemia: H&H stable 6. Postherpetic neuralgia: Continue gabapentin. 7. Recurrent falls: Fall precautions, PT to treat and eval 8. Left hip pain status post recent fall: X-ray at the long-term facility was reportedly negative. Continue with PT, Tylenol when necessary for pain 9. DVT prophylaxis: HUMPHREY Sanchez. Jeffrey Mancuso MD Apr 19, 2017 13:14
--- NOTE | 2017-04-19 13:16 | HHI.DS ---
Discharge Summary Admission Date Apr 10, 2017 at 14:02 Discharge Date: Apr 19, 2017 Admitting Diagnosis Sepsis secondary to pneumonia (1) HCAP (healthcare-associated pneumonia) ICD Code: J18.9 - Pneumonia, unspecified organism (2) COPD (chronic obstructive pulmonary disease) ICD Code: J44.9 - Chronic obstructive pulmonary disease, unspecified (3) Tobacco abuse ICD Code: Z72.0 - Tobacco use (4) Hypothyroidism ICD Code: E03.9 - Hypothyroidism, unspecified (5) Dehydration, mild ICD Code: E86.0 - Dehydration Status: Acute (6) Metabolic encephalopathy ICD Code: G93.41 - Metabolic encephalopathy (7) Sepsis ICD Code: A41.9 - Sepsis, unspecified organism Procedures None Brief History - From Admission Written by Vidhya Otto PA-C acting as scribe for Dr. Godinez on 04/10/17 at 15:21. This is an 86-year-old female with a past medical history significant for end- stage COPD and CHF who has been under the care of hospice while at home until she sustained a fall this past injuring the left hip and was brought into the care center for further evaluation and treatment. Due to patient's altered mental status per history is obtained from review of the medical record as well as discussion with the son who is at the bedside but admits he is not the primary caregiver for the patient is limited in his knowledge of her history. Per his report, patient does not have a history of dementia and has been alert and oriented up until yesterday when she developed increasing somnolence. He states for the past 2 days she has been sleeping constantly, will only briefly open her eyes but will not speak. She moans occasionally. This sister who is the primary caregiver and is not present has concerns that she has been receiving too much pain medication while at the care center and they no longer want her under hospice care. Per review of the records from the [facility] center, x-ray was done of the left hip which did not show a fracture. There is no report of recent fever, cough or congestion. No reported chest pain , shortness of breath, abdominal pain or diarrhea. Reportedly she does require the use of oxygen but continues to smoke heavily. In the ED, chest x-ray was obtained which revealed interstitial opacities right greater than left and superimposed acute pneumonia of the right lung base. White count is elevated at 14.9. Temperature is 99.9. She was also noted to be slightly tachycardic with a heart rate of 95. CBC/BMP: 04/17/17 0735 04/17/17 0735 Significant Findings Laboratory Tests Test 04/17/17 07:35 Red Blood Count 2.98 MIL/MM3 (4.00-5.30) Hemoglobin 8.5 GM/DL (11.6-15.3) Hematocrit 26.4 % (35.0-46.0) Red Cell Distribution Width 26.5 % (11.6-17.2) Mean Platelet Volume 6.4 FL (7.0-11.0) Neutrophils (%) (Auto) 77.2 % (16.0-70.0) Monocytes (%) (Auto) 9.9 % (0.0-8.0) Lymphocytes # (Auto) 0.7 TH/MM3 (1.0-4.8) Creatinine 0.23 MG/DL (0.50-1.00) Calcium Level 8.1 MG/DL (8.5-10.1) Potassium Level 3.1 MEQ/L (3.5-5.1) Imaging Last Impressions Chest X-Ray 04/10/17 0000 Signed Impressions: Service Date/Time: Monday, April 10, 2017 04:02 - CONCLUSION: Acute pneumonia possible of the right lung base in the proper clinical setting. Otherwise mainly chronic appearing bilateral interstitial disease with right-sided volume loss. Corby Villarreal MD PE at Discharge GENERAL: NAD SKIN: Warm and dry. HEAD: Normocephalic. EYES: No scleral icterus. No injection or drainage. NECK: Supple, trachea midline. No JVD or lymphadenopathy. CARDIOVASCULAR: Regular rate and rhythm without murmurs, gallops, or rubs. RESPIRATORY: Breath sounds decrease bilaterally. No accessory muscle use. GASTROINTESTINAL: Abdomen soft, non-tender, nondistended. MUSCULOSKELETAL: No cyanosis, or edema. BACK: Nontender without obvious deformity. No CVA tenderness. Hospital Course Patient admitted secondary to sepsis due to healthcare associated pneumonia for which she was treated with IV antibiotics with significant improvement of symptoms. Respiratory symptoms improved with bronchodilator therapy and patient was continued on steroid therapy. Treatment for other chronic medical conditions were continued. PT was consulted. DVT and GI prophylaxis were provided. Prior to discharge, although patient remained pleasantly confused but her vitals were stable Pt Condition on Discharge: Stable Discharge Disposition: Discharge to SNF Discharge Time: > 30 minutes Discharge Instructions DIET: Follow Instructions for: Heart Healthy Diet Speech Therapy-Diet Recommends: Pureed Activities you can perform: Regular-No Restrictions Follow up Referrals: PCP Follow-up - 2-3 Days Continued Medications: Alprazolam (Alprazolam) 0.5 Mg Tab 0.5 MG PO Q4H PRN for ANXIETY, #10 TAB 0 Refills (This prescription has been renewed) Aspirin (Aspirin) 325 Mg Tab 325 MG PO DAILY, #30 TAB 0 Refills Furosemide (Lasix) 20 Mg Tab 20 MG PO DAILY, #30 TAB 0 Refills Gabapentin (Gabapentin) 100 Mg Cap 200 MG PO BID, #60 CAP 0 Refills Hydrocodone-Acetaminophen ([place]) 5-325 mg Tab 1 TAB PO Q4H PRN for PAIN, #3 TAB 0 Refills (This prescription has been renewed) Ipratropium-Albuterol Neb (Duoneb) 0.5-2.5 Mg/3 Ml Neb 1 NEBULE INH Q4HR NEB for SHORTNESS OF BREATH, #120 NEBULE 0 Refills Levothyroxine (Levothyroxine) 50 Mcg Tab 50 MCG PO DAILY for Thyroid, #30 TAB 0 Refills Paroxetine (Paroxetine) 40 Mg Tab 40 MG PO DAILY, #30 TAB 0 Refills Potassium Chloride Microencaps (Potassium Chloride Microencaps) 10 Meq Tab 10 MEQ PO DAILY for Electrolyte Replacement, #30 TAB 0 Refills Prednisone (Prednisone) 10 Mg Tab 10 MG PO DAILY, TAB 0 Refills Sennosides (Sennosides) 8.6 Mg Tab 17.2 MG PO HS for Constipation, TAB 0 Refills Discontinued Medications: Alprazolam (Alprazolam) 0.5 Mg Tab 1 MG PO Q4H PRN for ANXIETY, TAB 0 Refills Azithromycin (Zithromax Z-Miguel Ángel) 250 Mg Dspk 250 MG PO DIRECTED for Infection, #1 DSPK 0 Refills 500 MG (2 tabs) day 1, then 1 tab days 2-5. Lorazepam Inj (Ativan Inj) 2 Mg/Ml Inj 0.5 MG IM TID PRN for UNKNOWN, VIAL Lorazepam Inj (Ativan Inj) 2 Mg/Ml Inj 1 MG SQ TID PRN for MOD/SEVERE ANXIETY, VIAL Morphine Inj (Morphine Inj) 10 Mg/Ml Inj 2.5 MG SQ PRN for MOD/SEVERE PAIN, VIAL Morphine Inj (Morphine Inj) 10 Mg/Ml Inj 5 MG SQ PRN for MOD/SEVERE PAIN, VIAL [Morphine 20MG/Ml] () 10 MG PO [Morphine 20MG/Ml] () 5 MG PO Jeffrey Mancuso MD Apr 19, 2017 13:16
== END 2017-04-19 15:20 | DRG 871 ==
LOC: EDBD 23:50 → NEPC 23:50 → NEDA 04-10 14:02 → N04B 04-10 17:08
PROVIDERS: ADMIT Hospitalist; ATTEND Hospitalist
DX: A41.9 Sepsis, unspecified organism (principal); J69.0 Pneumonitis due to inhalation of food and vomit; G93.41 Metabolic encephalopathy; I50.32 Chronic diastolic (congestive) heart failure; B02.29 Other postherpetic nervous system involvement; Z99.81 Dependence on supplemental oxygen; J44.9 Chronic obstructive pulmonary disease, unspecified; E86.0 Dehydration; D64.9 Anemia, unspecified; Z66 Do not resuscitate; Z51.5 Encounter for palliative care; F17.210 Nicotine dependence, cigarettes, uncomplicated; R29.6 Repeated falls; F42.9 Obsessive-compulsive disorder, unspecified; Z85.21 Personal history of malignant neoplasm of larynx; Z79.82 Long term (current) use of aspirin; E03.9 Hypothyroidism, unspecified; M25.552 Pain in left hip; M81.0 Age-related osteoporosis without current pathological fracture; F32.9 Major depressive disorder, single episode, unspecified; R62.7 Adult failure to thrive; F41.9 Anxiety disorder, unspecified; Z79.52 Long term (current) use of systemic steroids; Y95 Nosocomial condition
CPT/HCPCS: 71010; 76937; 80048; 80053; 81001; 83735; 84100; 85007; 85025; 85027; 87040; 94640; 94664; 96361; 96365; 96366; 96368; J0456; J0692; J1650; J1885; J1956; J3480; J7050; J7512